=== PATIENT | female | born 1935 | race Caucasian/White ===

== ENCOUNTER 2019-09-13 06:44 | Outpatient (CLI) | payer MEDICARE, SELFPAY ==
--- NOTE | ~2019-09-13 | US_ITS ---
EXAMINATION: US venous doppler [facility] DATE: 09/13/2019 08:34 INDICATION: Calf pain. TECHNIQUE: Grayscale ultrasound images without and with compression and Doppler ultrasound images of the bilateral lower extremity veins were obtained. COMPARISON: Ultrasound 03/14/2019 FINDINGS: The visualized portions of right common femoral vein, profunda (deep) femoral vein, femoral vein, pop liteal vein, peroneal veins, posterior tibial veins, and greater saphenous vein outflow are patent. The visualized portions of left common femoral vein, profunda femoral vein, femoral vein, popliteal v ein, peroneal veins, posterior tibial veins, and greater saphenous vein outflow are patent. IMPRESSION: 1. No deep venous thrombosis. Reviewed, dictated and finalized at location A. MOLD TESTER
--- NOTE | ~2019-09-13 | CT_ITS ---
EXAMINATION: CTA chest PE protocol DATE: 09/13/2019 07:27 INDICATION: Chest pain and shortness of breath. TECHNIQUE: Computed tomography angiography (CTA) of the chest was performed with 100 mL Omnipaque-350 intravenous contrast timed to evaluate the pulmonary arteries. Coronal maximum intensity projection 3D-reconstructions were created by the technologist. Automated exposure control and iterative reconst ruction technique were employed. The dose-length product was 194.69 mGy-cm. COMPARISON: Chest CT 10/27/2017 FINDINGS: There is moderate scarring at the lung apices. There is a stable 4 mm nodule in right lower lobe, likely benign. There is a stable 4 mm nodule in left lower lobe, likely benign. There are engraver flatware yaquelin airspace opacities in lingula with volume loss and varicose bronchiectasis, consistent with scarr ing. No pleural effusion. There are nodules in the thyroid measuring up to 12 mm, likely not clinical ly significant. Cardiomegaly is noted. There are coronary artery calcifications. No pericardial effus ion. There is no pulmonary embolus. There is levoscoliosis of upper thoracic spine. There is mild chr onic height loss of multiple vertebral bodies. There is moderate thoracic spondylosis. IMPRESSION: 1. No pulmonary embolus. 2. Scarring at the lung apices and in the lingula. Reviewed, dictated and finalized at location A. L OPPORTUNITY DIRECTOR
[2019-09-13 07:20] LABS: Blood Urea Nitrogen 29 mg/dL (8-26); Estimated Glomerular Filt Rate 53
== END 2019-09-13 06:45 | disposition home or self-care (01) ==
PROVIDERS: PCP Family Medicine; Visit Provider Nurse Practitioner Family
DX: I82.493 Acute embolism and thrombosis of other specified deep vein of lower extremity, bilateral (principal); R91.8 Other nonspecific abnormal finding of lung field
CPT/HCPCS: 36415; 71275; 93970; G0365; Q9967

== ENCOUNTER → 2020-02-06 08:58 | Outpatient (CLI) | payer MEDICARE, SELFPAY ==
--- NOTE | ~2020-02-06 | MR_ITS ---
EXAMINATION: MR brain/brain stem wo con DATE: 02/06/2020 09:58 INDICATION: Right-sided trigeminal neuralgia. TECHNIQUE: Magnetic resonance imaging (MRI) of the brain and brainstem was performed without intraven ous contrast. Sequences included sagittal and axial T1-weighted FSE, axial diffusion-weighted FS EPI, axial T2*-weighted GRE, axial T2-weighted FLAIR Propeller, axial T2-weighted Propeller, small field- of-view coronal FIESTA, small ofhgu-mi-cwfd coronal T1-weighted FSE, and small gzqbx-je-amhd axial T1 -weighted SPGR. Apparent diffusion coefficient (ADC) maps were created. COMPARISON: Brain MRI 01/31/2018 FINDINGS: There are scattered areas of nonspecific increased T2-weighted signal intensity in the cere bral white matter, which is within normal limits for the patient's age. There is no intracranial hemo rrhage, acute infarction, or abnormal intracranial mass lesion. The ventricles are normal in size. Ri ght superior cerebellar artery exerts mass effect on the right trigeminal nerve at the root entry zon e. The mastoid air cells are normal. There is mild mucosal thickening in the paranasal sinuses. There are likely changes of right ocular lens replacement surgery. IMPRESSION: 1. 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 Reviewed, dictated and finalized at location A.
== END ==
PROVIDERS: PCP Family Medicine; Visit Provider Psychiatry & Neurology Neurology
DX: G50.0 Trigeminal neuralgia (principal)
CPT/HCPCS: 70551

== ENCOUNTER 2020-04-23 11:23 | Emergency (ER) | payer MEDICARE, SELFPAY ==
--- NOTE | ~2020-04-23 | XR_ITS ---
EXAMINATION: XR chest 1V portable EXAM DATE: 04/23/2020 13:06 INDICATION: Fever. TECHNIQUE: Portable AP frontal chest x-ray was obtained. Comparison is made to prior examination from 12/26/2018. FINDINGS: Biapical scarring. The lungs are otherwise clear. There are no pleural effusions. Cardiac silhouette is prominent but magnified on this AP technique. There is no pneumothorax suspected. T he bones and soft tissues are unremarkable. Severe chronic hyperinflation. IMPRESSION: 1. No acute cardiopulmonary findings. 2. Hyperinflation. Reviewed, dictated and finalized at location B.
[2020-04-23 11:29] VITALS: BP 127/54; PULSE 74; RESP 18; TEMP 37; O2SAT 96
[2020-04-23 12:24] LABS: Basophils Percent Auto 0.5 % (0.2-1.2); Eosinophils Absolute Auto 0.1 K/mm3 (0-0.3); Eosinophils Percent Auto 1.1 % (0-4.4); Hematocrit 38.8 % (37.0-47.0); Hemoglobin 12.6 g/dL (12.0-15.0); Immature Granulocyte Absolute 0.03 K/mm3 (0.00-0.031); Immature Granulocyte Percent A 0.5 % (0-0.5); Lymphocytes Absolute Auto 1.21 K/mm3 (0.9-3.2); Lymphocytes Percent Auto 18.9 % (18.3-44.2); Mean Corpuscular HGB Conc 32.5 g/dl (32-36); Mean Corpuscular Hemoglobin 30.5 pg (26-34); Mean Corpuscular Volume 93.9 fl (80-100); Mean Platelet Volume 10.5 fl (7.4-10.4); Monocytes Absolute Auto 0.7 K/mm3 (0.1-0.6); Monocytes Percent Auto 10.2 % (2.6-8.5); Neutrophils Absolute Auto 4.4 K/mm3 (1.3-6.7); Neutrophils Percent Auto 68.8 % (45.5-73.1); Platelet Count Result 216 k/mm3 (150-375); Red Blood Count 4.13 M/mm3 (4.2-5.4); Red Cell Distribution Width 12.2 % (11.5-14.5); White Blood Count 6.4 K/mm3 (4.5-10.0)
--- NOTE | 2020-04-23 12:27 | ED.FEVER ---
HPI - Fever General Chief Complaint: Fever Stated Complaint: fever 101 Time Seen by Provider: 04/23/20 11:49 Source: patient Mode of arrival: ambulatory Limitations: no limitations History of Present Illness HPI Narrative: Patient is a 84-year-old female who presents to emergency department for evaluation of cough congestion rhinorrhea for the last week and a half was referred to emergency department by primary care due to fever patient notes that she feels fine notes slight fatigue denies vomiting diarrhea chest pain notes shortness of breath but states that is consistent with her chronic COPD. Patient on arrival resting comfortably in the room denies vomiting diarrhea chest pain is noted. Patient has been compliant with her prescribed medications has not taken anything for her symptoms. Related Data Home Medications Medication Instructions Recorded Confirmed cholecalciferol (vitamin D3) 25 1,000 unit PO DAILY 09/24/19 03/30/20 mcg (1,000 unit) capsule rivaroxaban 10 mg tablet 10 mg PO DAILY 09/24/19 03/30/20 Allergies Allergy/AdvReac Type Severity Reaction Status Date / Time Sulfa (Sulfonamide Allergy Unknown constipatio Verified 04/23/20 10:27 Antibiotics) n sulfamethizole Allergy Unknown sweaty Verified 04/23/20 10:27 Review of Systems Review of Systems: All systems reviewed & are unremarkable except as noted in HPI and below PMFSH Past Medical History Medical History COPD exacerbation Essential hypertension Status post gamma knife treatment Upper respiratory tract infection Social History Social History Smoking status: Never smoker Alcohol intake: never Gender identity (if verbalized by the patient): Female Spiritual care concerns: No Exam Narrative: Exam Narrative: GENERAL: Well-appearing, well-nourished, and in no acute distress. HEAD: Normocephalic, atraumatic. EYES: PERRLA and EOMI. ENT: Nares clear, no rhinorrhea or epistaxis. Mucous membranes moist. Oropharynx without tonsillar hypertrophy exudate or other lesions. NECK: Supple. No adenopathy or masses. CHEST: Clear to auscultation. No respiratory distress. No wheezes rales or rhonchi HEART: Regular rate and rhythm. No murmur heard. Normal peripheral pulses. ABDOMEN: Soft, nontender, nondistended EXTREMITIES: Normal range of motion. No edema. SKIN: Warm, dry, no rash. NEURO: No focal deficits. Alert and oriented x3. PSYCH: Normal mood and affect. 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 Supervision Patient in the room at this time aware of case findings treatment plan and diagnosis agreeing to follow-up as directed or to return if symptoms worsen or concerns aware of discussion with primary care and will follow with them over the phone for COVID testing and reevaluation Consultations Consultation #1: Discussed case with primary care who will follow patient at home for reevaluation Date: 04/23/20 Time: 13:55 Vital Signs Vital signs: Vital Signs Temperature 98.6 F 04/23/20 11:29 Pulse Rate 74 04/23/20 11:29 Respiratory Rate 18 04/23/20 11:29 Blood Pressure 127/54 L 04/23/20 11:29 Pulse Oximetry 96 04/23/20 11:29 Temperature 98.6 F 04/23/20 11:29 Pulse Rate 59 L 04/23/20 13:30 Respiratory Rate 18 04/23/20 13:30 Blood Pressure 148/64 H 04/23/20 13:30 Pulse Oximetry 100 04/23/20 13:30 MDM - Fever MDM Narrative Medical decision making narrative: Patient in the room in no distress no high risk changes in the blood work imaging hemodynamically stable. Patient with nontender abdominal exam no pneumonia seen on exam. Patient has been hydrated and advised to continue to hydrate will go home pending COVID results and will follow with primary care and is been given strict instructions on returning Lab Data Result diagrams: 04/23/20 12:08 04/23/20 12:08 Labs: Lab Results
[2020-04-23] MEDS: SODIUM CHLORIDE 0.9% IV 500 ML 999 ML IV CONT (12:31)
[2020-04-23 12:33] LABS: INR 1.9; Partial Thromboplastin Time 34.6 SECONDS (22.3-36.8); Prothrombin Time 21.2 Seconds (11.1-14.7)
[2020-04-23 12:36] LABS: Lactic Acid Reflex 0.9 mmol/L (0.7-2.1)
[2020-04-23 12:41] LABS: Alanine Aminotransferase 15 U/L (4-35); Albumin Level 4.1 g/dL (3.5-5.1); Alkaline Phosphatase 82 U/L (38-126); Aspartate Amino Transferase 32 U/L (14-36); Bilirubin,Total 0.5 mg/dL (0.2-1.3); Blood Urea Nitrogen 24 mg/dL (7-17); CRP < 0.5 mg/dL (<1.0); Calcium 9.7 mg/dL (8.4-10.2); Carbon Dioxide 27 mmol/L (22-30); Chloride 104 mmol/L (98-107); Estimated CRCL calculation 38 ml/min; Estimated Glomerular Filt Rate > 60; Glucose 92 mg/dL (65-105); Potassium 4.1 mmol/L (3.4-5.0); Sodium 137 mmol/L (137-145)
[2020-04-23 13:30] VITALS: BP 148/64; PULSE 59; RESP 18; O2SAT 100
[2020-04-23 13:44] LABS: Add Urine Microscopic? YES; Appearance Urine Clear (Clear); Bilirubin Urine Negative (Negative); Blood Urine 2+ (Negative); Color Urine Yellow (Yellow); Glucose Urine UA Negative (Negative); Ketones Urine Negative (Negative); Leukocyte Esterase Ur Negative LEU/UL (Negative); Mucus Urine Rare /lpf; Nitrate Urine Negative (Negative); Protein Urine Negative (Negative); Specific Grav Ur 1.013 (1.001-1.035); Urobilinogen Urine Negative mg/dL (<2.0); WBC Urine 0-3 /hpf
[2020-04-23 14:11] VITALS: BP 142/78; PULSE 78; RESP 18; O2SAT 100
[2020-04-23 22:04] LABS: SARS-CoV-2 RNA PCR Negative
== END 2020-04-23 14:12 | disposition home or self-care (01) ==
PROVIDERS: Emergency Medicine Emergency Medical Services; Emergency Provider Emergency Medicine; PCP Family Medicine
DX: J06.9 Acute upper respiratory infection, unspecified (principal); Z20.828 Contact with and (suspected) exposure to other viral communicable diseases; I10 Essential (primary) hypertension; J44.9 Chronic obstructive pulmonary disease, unspecified; R06.02 Shortness of breath
CPT/HCPCS: 36415; 71045; 80053; 81001; 83605; 85025; 85610; 85730; 86140; 87040; 87635; 96360; 99283; C9803; J7040; U0003

== ENCOUNTER 2020-06-19 14:48 | Outpatient (CLI) | payer MEDICARE, SELFPAY ==
[2020-06-19 15:42] LABS: Parathyroid Intact 25.6 pg/mL (7.5-53.5)
[2020-06-19 17:11] LABS: Free T4 Free Thyroxine 0.99 ng/mL (0.78-2.19)
[2020-06-24 05:33] LABS: Triiodothyronine T3 Free 3.1 pg/mL (2.3-4.2)
== END 2020-06-19 14:49 | disposition home or self-care (01) ==
PROVIDERS: PCP Family Medicine; Visit Provider Internal Medicine Endocrinology, Diabetes & Metabolism
DX: E04.9 Nontoxic goiter, unspecified (principal); E05.90 Thyrotoxicosis, unspecified without thyrotoxic crisis or storm; M81.0 Age-related osteoporosis without current pathological fracture
CPT/HCPCS: 36415; 82306; 83970; 84439; 84443; 84481

== ENCOUNTER 2020-06-22 10:23 | Outpatient (CLI) | payer MEDICARE, SELFPAY ==
--- NOTE | ~2020-06-22 | US_ITS ---
EXAMINATION: US thyroid EXAM DATE: 06/22/2020 10:58 INDICATION: Nontoxic goiter. TECHNIQUE: Multiple grayscale and Doppler images of the thyroid were obtained (by a technologist who performed the scan) and subsequently reviewed. Individual nodules and recommendations may be reporte d in accordance with TI-RADS system as designated by the 2017 ACR White Paper TI-RADS committee. Comp eseson is made to prior examination from 12/26/2018, 04/28/2015. FINDINGS: The right thyroid lobe measures 4.6 x 2.4 x 2.5 cm, the left measuring 3.5 x 1.8 x 2.5 cm. Mildly het erogeneous thyroid echogenicity with hypervascular parenchyma. There are several thyroid nodules. Largest thyroid nodule is in the right thyroid lobe measures 2.2 x 1.7 x 1.8 cm, solid (2 points), is oechoic (1 point), wider than tall, smooth margin, without echogenic foci, category TR3 for this nodu le. There is another nodule with similar imaging characteristics in the right thyroid lobe measuring 1.5 x 1.2 x 1.4 cm. On the left side, largest thyroid nodule measures 1.2 x 1. 1 x 0.8 centimeters, spongiform appearance consistent with colloid cyst. Study appears unchanged compared to prior examination from 2014, nodu les currently present are not likely clinically significant. IMPRESSION: 1. Stable multinodular goiter; return to clinical follow-up. Reviewed, dictated and finalized at location A.
== END 2020-06-22 10:24 | disposition home or self-care (01) ==
PROVIDERS: PCP Family Medicine; Visit Provider Internal Medicine Endocrinology, Diabetes & Metabolism
DX: E04.2 Nontoxic multinodular goiter (principal); E05.90 Thyrotoxicosis, unspecified without thyrotoxic crisis or storm
CPT/HCPCS: 76536

== ENCOUNTER 2020-07-17 09:22 | Outpatient (CLI) | payer MEDICARE, SELFPAY ==
--- NOTE | ~2020-07-17 | MM_ITS ---
EXAMINATION: MM screening kelli BI w tom HISTORY: Screening mammogram TECHNIQUE: Craniocaudal and mediolateral oblique 3-D tomosynthesis images were obtained and synthetic 2-D images were generated. CAD analysis was submitted and interpreted. COMPARISON: 07/15/2019, 07/10/2018, 04/18/2017 bilateral digital screening mammogram examinations BREAST PARENCHYMAL COMPOSITION: There are scattered areas of fibroglandular density. FINDINGS: There are occasional benign calcifications. Focal architectural distortion is suggested in the inner aspect of the mid to upper outer left breast (craniocaudal Tomosynthesis image 18/45). Diagnostic left mammogram and left breast ultrasound exami nation are recommended. Otherwise there is no evidence of suspicious mass, calcification, or architectural distortion to sugg est malignancy in either breast. There has been no other suspicious interval change. IMPRESSION: 1. Focal architectural distortion in inner aspect of mid to upper outer left breast 2. Diagnostic left mammogram and left breast ultrasound examination are recommended. BI-RADS Category 0: Incomplete: Needs additional imaging evaluation. Reviewed, dictated and finalized at location A. IMPRESSION: 1. Focal architectural distortion in inner aspect of mid to upper outer left br east 2. Diagnostic left mammogram and left breast ultrasound examination are recomme nded. BI-RADS Category 0: Incomplete: Needs additional imaging evaluation.
== END 2020-07-17 09:23 | disposition home or self-care (01) ==
LOC: ANHIMG 09:25
PROVIDERS: PCP Family Medicine; Visit Provider Family Medicine
DX: Z12.31 Encounter for screening mammogram for malignant neoplasm of breast (principal); R92.8 Other abnormal and inconclusive findings on diagnostic imaging of breast
CPT/HCPCS: 77063; 77067

== ENCOUNTER 2020-08-10 11:09 | Outpatient (CLI) | payer MEDICARE, SELFPAY ==
--- NOTE | ~2020-08-10 | MMUS_ITS ---
EXAMINATION: MM diagnostic mammo unilat LT, US breast LT complete HISTORY: Follow-up left breast asymmetry TECHNIQUE: Additional 3-D tomosynthesis images of the left breast were performed and synthetic 2-D im ages were generated. CAD analysis was submitted and interpreted. High resolution left breast ultrasou nd was performed. COMPARISON: Comparison to multiple prior studies sequentially, with oldest reviewed study dated 06/2015. BREAST PARENCHYMAL COMPOSITION: Breast composed of scattered areas of fibroglandular density. FINDINGS: MAMMOGRAPHIC FINDINGS: There are no suspicious masses, calcifications or architectural distortion in the left breast to sugg est malignancy. Focal asymmetries in the left breast are stable with spot compression views. ULTRASOUND: Complete left breast ultrasound. Normal heterogeneous echotexture without focal solid or cystic mass. IMPRESSION: 1. No evidence for malignancy in the left breast. 2. Routine yearly screening mammogram and regular clinical breast examination are recommended. BI-RADS Category 2: Benign finding(s). Reviewed, dictated and finalized at location A. IMPRESSION: 1. No evidence for malignancy in the left breast. 2. Routine yearly screening mammogram and regular clinical breast examination a re recommended. BI-RADS Category 2: Benign finding(s).
== END 2020-08-10 11:10 | disposition home or self-care (01) ==
LOC: ANHIMG 11:09
PROVIDERS: PCP Family Medicine; Visit Provider Family Medicine
DX: R92.8 Other abnormal and inconclusive findings on diagnostic imaging of breast (principal)
CPT/HCPCS: 76641; 77065

== ENCOUNTER 2021-01-20 09:42 | Outpatient (CLI) | payer MEDICARE, SELFPAY ==
--- NOTE | ~2021-01-20 | DEXA_ITS ---
Bone Density Report Name: Beth Tracey Age: 85 Sex: Female Ethnicity: White Date of : 1935 Indication: osteopenia; parental hip fracture; height loss; postmenopausal Referring Provider: Yuliya Hogan Study: Bone densitometry was performed. Exam Date: January 20, 2021 Accession number: [id number] Bone Density: Region BMD T-score Z-score Classification AP Spine (L1-L4) 0.975 -0.7 2.2 Normal Femoral Neck (Left) 0.582 -2.4 0.1 Osteopenia Total Hip (Left) 0.757 -1.5 0.8 Osteopenia Total Hip Bilateral Avg 0.716 -1.9 0.5 Osteopenia Femoral Neck (Right) 0.547 -2.7 -0.2 Osteoporosis Total Hip (Right) 0.674 -2.2 0.1 Osteopenia World Health Organization criteria for BMD impression classify patients as: Normal (T-score at or above -1.0), Osteopenia (T-score between -1.0 and -2.5), or Osteoporosis (T-score at or below -2.5). 10-year Fracture Risk: FRAX not reported because: Some T-score for Spine Total or Hip Total or Femoral Neck at or below -2.5 Previous Exams: Region Exam Age BMD T-score BMD Change BMD Change Date g/cm2 vs Baseline vs Previous AP Spine(L1-L4) 01/20/2021 85 0.975 -0.7 0.052(5.6%)# 0.040(4.3%)* 12/22/2018 82 0.934 -1.0 0.012(1.3%)# 0.004(0.4%)# 08/28/2012 76 0.931 -1.1 0.008(0.8%)# -0.026(-2.7%)# 04/29/2009 73 0.956 -0.8 0.033(3.6%)* 0.006(0.6%) 12/20/2003 67 0.950 -0.9 0.028(3.0%)* 0.028(3.0%)* 09/28/2001 65 0.923 -1.1 Total Hip(Left) 01/20/2021 85 0.757 -1.5 0.041(5.8%)# 0.024(3.2%) 12/22/2018 82 0.733 -1.7 0.017(2.4%)# -0.020(-2.7%)# 08/28/2012 76 0.753 -1.5 0.038(5.2%)# 0.015(2.0%)# 04/29/2009 73 0.738 -1.7 0.023(3.2%) 0.027(3.7%) 12/20/2003 67 0.712 -1.9 -0.004(-0.5%) -0.004(-0.5%) 09/28/2001 65 0.716 -1.9 Total Hip(Right) 01/20/2021 85 0.674 -2.2 0.017(2.6%)# 0.004(0.5%) 12/22/2018 82 0.671 -2.2 0.013(2.1%)# -0.017(-2.5%)# 08/28/2012 76 0.688 -2.1 0.031(4.7%)# 0.012(1.7%)# 04/29/2009 73 0.676 -2.2 0.019(2.9%) 0.012(1.8%) 12/20/2003 67 0.664 -2.3 0.007(1.0%) 0.007(1.0%) 09/28/2001 65 0.657 -2.3 *Denotes significance at 95% confidence level, LSC for AP Spine = 0.022 g/cm2, LSC for Total Hip = 0.027 g/cm2 Clinical Information Provided by Patient: Parent has had a hip fracture Patient maximum height was 64 Menopause Age: 50 Onset of menses at age 14 Number of children 0
== END 2021-01-20 09:43 | disposition home or self-care (01) ==
PROVIDERS: PCP Family Medicine; Visit Provider Internal Medicine Endocrinology, Diabetes & Metabolism
DX: E03.9 Hypothyroidism, unspecified (principal); E04.2 Nontoxic multinodular goiter; M81.0 Age-related osteoporosis without current pathological fracture; M85.852 Other specified disorders of bone density and structure, left thigh; M85.851 Other specified disorders of bone density and structure, right thigh
CPT/HCPCS: 77080

== ENCOUNTER 2021-01-21 12:06 | Outpatient (CLI) | payer MEDICARE, SELFPAY ==
[2021-01-21 12:53] LABS: Anion Gap 6 mmol/L (8-16); Blood Urea Nitrogen 25 mg/dL (7-17); Calcium 9.4 mg/dL (8.4-10.2); Carbon Dioxide 30 mmol/L (22-30); Chloride 105 mmol/L (98-107); Estimated Glomerular Filt Rate 53; Glucose 106 mg/dL (65-105); Potassium 4.2 mmol/L (3.4-5.0); Sodium 141 mmol/L (137-145)
[2021-01-21 13:10] LABS: Free T4 Free Thyroxine 1.07 ng/mL (0.78-2.19); Vitamin D 25 Hydroxy 47.9 ng/mL
[2021-01-21 13:25] LABS: Thyroid Stimulating Hormone 0.839 uIU/mL (0.465-4.680); Total Triiodothyronine (T3) 1.33 NG/ML (0.97-1.69)
== END 2021-01-21 12:07 | disposition home or self-care (01) ==
PROVIDERS: PCP Family Medicine; Visit Provider Internal Medicine Endocrinology, Diabetes & Metabolism
DX: M81.0 Age-related osteoporosis without current pathological fracture (principal); E03.9 Hypothyroidism, unspecified; E04.2 Nontoxic multinodular goiter; E05.90 Thyrotoxicosis, unspecified without thyrotoxic crisis or storm
CPT/HCPCS: 36415; 80048; 82306; 84439; 84443; 84480

== ENCOUNTER 2021-03-09 07:01 | Emergency (ER) | payer MEDICARE, SELFPAY ==
[2021-03-09 07:05] VITALS: BP 179/82; PULSE 64; RESP 20; TEMP 36.6; O2SAT 100
--- NOTE | 2021-03-09 07:16 | PC.NURSE ---
x2 weeks scaly itchy red rash to front of neck and chest w/spot on legs, denies use of new skin products, reports sulfa allergy. States she went to 's adz worker appt [place] to have them look at it, has been using hydrocortisone and triamcinolone w/o relief. Non-labored respirations
[2021-03-09 07:44] LABS: Basophils Absolute Auto 0.1 K/mm3 (0.0-0.1); Basophils Percent Auto 0.8 % (0.2-1.2); Eosinophils Absolute Auto 0.3 K/mm3 (0-0.3); Eosinophils Percent Auto 4.3 % (0-4.4); Hemoglobin 12.4 g/dL (12.0-15.0); Immature Granulocyte Absolute 0.02 K/mm3 (0.00-0.031); Immature Granulocyte Percent A 0.3 % (0-0.5); Lymphocytes Absolute Auto 1.44 K/mm3 (0.9-3.2); Lymphocytes Percent Auto 22.2 % (18.3-44.2); Mean Corpuscular HGB Conc 32.6 g/dl (32-36); Mean Corpuscular Hemoglobin 30.8 pg (26-34); Mean Corpuscular Volume 94.5 fl (80-100); Mean Platelet Volume 9.8 fl (7.4-10.4); Monocytes Absolute Auto 0.7 K/mm3 (0.1-0.6); Monocytes Percent Auto 10.8 % (2.6-8.5); Neutrophils Percent Auto 61.6 % (45.5-73.1); Platelet Count Result 208 k/mm3 (150-375); Red Blood Count 4.02 M/mm3 (4.2-5.4); White Blood Count 6.5 K/mm3 (4.5-10.0)
[2021-03-09 07:54] LABS: Anion Gap 5 mmol/L (8-16); Blood Urea Nitrogen 24 mg/dL (7-17); Calcium 9.6 mg/dL (8.4-10.2); Carbon Dioxide 29 mmol/L (22-30); Chloride 107 mmol/L (98-107); Estimated CRCL calculation 30 ml/min; Estimated Glomerular Filt Rate 53; Glucose 94 mg/dL (65-105); Sodium 141 mmol/L (137-145)
--- NOTE | 2021-03-09 09:01 | ED.SKABFB ---
HPI - Skin/Abscess/Foreign Bdy General Chief complaint: Skin/Abscess/Foreign Body Stated complaint: rash Time Seen by Provider: 03/09/21 07:10 History of Present Illness HPI narrative: Patient is an 85-year-old female who presents ER with a rash. Is located on her anterior neck and upper chest. She also has 1 small lesion to her left inner thigh near her knee. It is pruritic. No fevers or chills or sweats. There are no pustules or vesicles or drainage. She was seen by a rolloff truck driver and has been using triamcinolone cream for the last week as well as topical hydrocortisone cream. She reports is not improving her symptoms. No known exposures to new medications or detergents. She uses dye free and fragrance free laundry detergent. She has not applied anything else to the rash. She is unsure when she is supposed to follow-up with her rolloff truck driver. Related Data Home Medications Medication Instructions Recorded Confirmed cholecalciferol (vitamin D3) 25 1,000 unit PO DAILY 09/24/19 09/29/20 mcg (1,000 unit) capsule rivaroxaban 10 mg tablet 10 mg PO DAILY 09/24/19 09/29/20 Allergies Allergy/AdvReac Type Severity Reaction Status Date / Time Sulfa (Sulfonamide Allergy Unknown constipatio Verified 09/29/20 09:40 Antibiotics) n sulfamethizole Allergy Unknown sweaty Verified 09/29/20 09:40 Review of Systems Review of Systems: All systems reviewed & are unremarkable except as noted in HPI and below Constitutional: Constitutional: Denies chills, Denies fever(s) and Denies weakness ENT: Denies dysphagia and Denies sore throat Cardiovascular: Cardiovascular: Denies chest pain and Denies radiating jaw, neck or arm pain Respiratory: Respiratory: Denies cough and Denies dyspnea Integumentary/Breasts: Skin/Breast: Reports pruritus, Reports erythema, Reports rash and Denies skin ulcer PMFSH Past Medical History Medical History (Updated 03/09/21 @ 09:08 by Catalino Mejia MD) COPD exacerbation Essential hypertension History of DVT (deep vein thrombosis) Hyperthyroidism Multinodular goiter Status post gamma knife treatment Trigeminal neuralgia of right side of face Upper respiratory tract infection Family History Family History Father Family history of cardiovascular disease Family history of chronic obstructive pulmonary disease Family history of tuberculosis Family history of coronary artery disease Mother Family history of cardiovascular disease, Onset Age: 97 Grandparent Family history of kidney disease Other Asthma Family history of hearing loss Family history of lung disease Social History Social History Smoking status: Never smoker Alcohol intake: never Gender identity (if verbalized by the patient): Female Spiritual care concerns: No Exam Narrative: Exam Narrative: GENERAL: Well-appearing, well-nourished, and in no acute distress. HEAD: Normocephalic, atraumatic. ENT: Mucous membranes moist. NECK: Supple. CHEST: Clear to auscultation. No respiratory distress. HEART: Regular rate and rhythm. Normal peripheral pulses. EXTREMITIES: Normal range of motion. No edema. SKIN: Warm, dry, no rash. See neck exam NEURO: Alert and oriented x3. Neck: Neck: no lymphadenopathy, supple and no anterior neck swelling Neck images: 1. Urticarial wheel 2. Slight erythema with indurated wheels. Course Course Emergency Course: Unremarkable blood work. Will encourage Benadryl as well as oral steroids. This does not appear to be cellulitis my opinion. Patient may require biopsy if not responsive to steroids. Discussed this with patient recommend follow-up with PCP or dermatology. Vital Signs Vital signs: Vital Signs Temperature 97.9 F 03/09/21 07:05 Pulse Rate 64 03/09/21 07:05 Respiratory Rate 20 03/09/21 07:05 Blood Pressure 179/82 H
[2021-03-09 09:21] VITALS: BP 144/84; PULSE 65; RESP 18; O2SAT 98
== END 2021-03-09 09:23 | disposition home or self-care (01) ==
PROVIDERS: Emergency Provider Emergency Medicine; PCP Family Medicine
DX: L50.9 Urticaria, unspecified (principal); J44.9 Chronic obstructive pulmonary disease, unspecified; I10 Essential (primary) hypertension; E04.2 Nontoxic multinodular goiter; Z86.718 Personal history of other venous thrombosis and embolism
CPT/HCPCS: 36415; 80048; 85025; 99283

== ENCOUNTER 2021-09-29 09:23 | Outpatient (CLI) | payer MEDICARE, SELFPAY ==
--- NOTE | 2021-09-29 09:41 | ECG_ITS ---
Measurements Intervals [place] Rate: 64 P: 75 PA: 114 QRS: 58 QRSD: 72 T: 50 QT: 378 QTc: 392 Interpretive Statements SINUS RHYTHM WITH SINUS ARRHYTHMIA WITH SHORT PA INTERVAL CANNOT RULE OUT SEPTAL INFARCT, AGE INDETERMINATE BASELINE ARTIFACT- I, AVR, AVL ABNORMAL ECG Electronically Signed On 09-29-2021 11:18:50 EXTERIOR DESIGNER by Jewel Leung D.O.
== END 2021-09-29 09:24 | disposition home or self-care (01) ==
PROVIDERS: PCP Family Medicine; Visit Provider Surgery
DX: K40.90 Unilateral inguinal hernia, without obstruction or gangrene, not specified as recurrent (principal); I10 Essential (primary) hypertension; Z01.818 Encounter for other preprocedural examination; R94.31 Abnormal electrocardiogram [ECG] [EKG]
CPT/HCPCS: 36415; 86850; 86900; 86901; 93005

== ENCOUNTER 2022-01-04 14:14 | Outpatient (CLI) | payer MEDICARE, SELFPAY ==
[2022-01-04 17:02] LABS: Anion Gap 5 mmol/L (8-16); Blood Urea Nitrogen 24 mg/dL (7-17); Calcium 9.1 mg/dL (8.4-10.2); Carbon Dioxide 31 mmol/L (22-30); Chloride 104 mmol/L (98-107); Estimated Glomerular Filt Rate 53; Glucose 94 mg/dL (65-110); Potassium 3.9 mmol/L (3.4-5.0); Sodium 140 mmol/L (137-145)
[2022-01-04 17:15] LABS: Free T4 Free Thyroxine 1.16 ng/mL (0.78-2.19); Vitamin D 25 Hydroxy 43.6 ng/mL
[2022-01-04 17:32] LABS: Thyroid Stimulating Hormone 0.701 uIU/mL (0.465-4.680)
[2022-01-07 16:35] LABS: Triiodothyronine T3 Free 3.2 pg/mL (2.3-4.2)
== END 2022-01-04 14:15 | disposition home or self-care (01) ==
LOC: ANHWCLAB 14:18
PROVIDERS: PCP Family Medicine; Referring Provider Internal Medicine Endocrinology, Diabetes & Metabolism; Visit Provider Internal Medicine Endocrinology, Diabetes & Metabolism
DX: E04.1 Nontoxic single thyroid nodule (principal); E05.90 Thyrotoxicosis, unspecified without thyrotoxic crisis or storm; M81.0 Age-related osteoporosis without current pathological fracture; R79.89 Other specified abnormal findings of blood chemistry
CPT/HCPCS: 36415; 80048; 82306; 84439; 84443; 84481

== ENCOUNTER 2022-03-16 03:20 | Emergency (ER) | payer MEDICARE, SELFPAY ==
[2022-03-16 03:32] VITALS: BP 180/67; PULSE 61; RESP 18; TEMP 36.9; O2SAT 99
--- NOTE | 2022-03-16 07:51 | ED.GENADULT ---
HPI - General Adult General Chief complaint: Skin/Abscess/Foreign Body Stated complaint: rash, itching Time Seen by Provider: 03/16/22 07:37 Source: patient and family Limitations: no limitations History of Present Illness HPI narrative: Patient is 86 years old white female came to the emergency room with itching rash started was seen by her family physician recently and was diagnosed of shingles and was started on triamcinolone cream and acyclovir without any improvement. She denies any fever, chills, nausea, vomiting or having similar symptoms in the past. Related Data Home Medications Medication Instructions Recorded Confirmed rivaroxaban 10 mg tablet 10 mg PO DAILY 09/24/19 01/04/22 azelastine 1 spray INTRANASAL Q12H PRN 09/22/21 01/04/22 Allergies Allergy/AdvReac Type Severity Reaction Status Date / Time Sulfa (Sulfonamide Allergy Unknown constipatio Verified 03/16/22 05:58 Antibiotics) n sulfamethizole Allergy Unknown sweaty Verified 03/16/22 05:58 Review of Systems Review of Systems: All systems reviewed & are unremarkable except as noted in HPI and below PMFSH Past Medical History Medical History Acute deep vein thrombosis (DVT) of popliteal vein of right lower extremity COPD exacerbation Detrusor dysfunction Essential hypertension History of DVT (deep vein thrombosis) Hyperthyroidism Multinodular goiter Status post gamma knife treatment Trigeminal neuralgia of right side of face Upper respiratory tract infection Family History Family History Father Family history of cardiovascular disease Family history of chronic obstructive pulmonary disease Family history of tuberculosis Family history of coronary artery disease Mother Family history of cardiovascular disease, Onset Age: 97 Grandparent Family history of kidney disease Other Asthma Family history of hearing loss Family history of lung disease Social History Social History Smoking status: Never smoker Second hand tobacco smoke exposure: No Alcohol intake: never Substance use: never Substance use type: does not use Gender identity (if verbalized by the patient): Female Spiritual care concerns: No Exam Narrative: General appearance: Well-developed, well-nourished Skin:, Macular rash left lower abdomen left upper thigh anteriorly, and at the right thigh anteriorly also eczematous rash on the right side of face. Head: Normocephalic, nontraumatic Eyes: Clear conjunctiva ENT: Oropharynx normal, ears normal, nose normal Neck: Supple, nontender Chest and respiratory: Airway patent, no respiratory distress, no accessory muscle use Heart: Regular rate/rhythm Abdomen: Soft, nontender, no organomegaly, quiet bowel sounds Vascular: Normal peripheral pulses, normal capillary refill. Musculoskeletal: Normal range of motion, nontender back Neurologic: Alert and oriented ?3, FOUNDRY TENDER is normal as tested, no gross motor deficit Course Consultations Consultation #1: Dr. York Agreed to discharge on prednisone and Zyrtec Date: 03/16/22 Time: 08:44 Vital Signs Vital signs: Vital Signs Temperature 36.9 C 03/16/22 03:32 Pulse Rate 61 03/16/22 03:32 Respiratory Rate 18 03/16/22 03:32 Blood Pressure 180/67 H 03/16/22 03:32 Pulse Oximetry 99 03/16/22 03:32 Temperature 36.9 C 03/16/22 03:32 Pulse Rate 61 03/16/22 03:32 Respiratory Rate 18 03/16/22 03:32 Blood Pressure 180/67 H 03/16/22 03:32 Pulse Oximetry 99 03/16/22 03:32 Medical Decis
[2022-03-16] MEDS: predniSONE 20 MG TABLET 40 MG PO (08:32)
[2022-03-16 08:35] VITALS: BP 155/72; PULSE 68; RESP 20; O2SAT 98
== END 2022-03-16 08:49 | disposition home or self-care (01) ==
PROVIDERS: Emergency Provider Emergency Medicine; PCP Family Medicine
DX: R21 Rash and other nonspecific skin eruption (principal); J44.9 Chronic obstructive pulmonary disease, unspecified; I10 Essential (primary) hypertension; Z86.718 Personal history of other venous thrombosis and embolism
CPT/HCPCS: 99283; J7512

== ENCOUNTER 2022-12-03 11:37 | Emergency (ER) | payer MEDICARE, SELFPAY ==
[2022-12-03 11:55] VITALS: BP 124/56; RESP 18; TEMP 36.6; O2SAT 99
[2022-12-03 12:02] VITALS: PULSE 78
--- NOTE | 2022-12-03 12:23 | ED.EXTPRO ---
HPI - Extremity Problem General Chief complaint: Extremity Problem,Nontraumatic Stated complaint: Right Foot Pain Time Seen by Provider: 12/03/22 12:23 Source: patient Mode of arrival: ambulatory Limitations: no limitations History of Present Illness HPI Narrative: 86-year-old female presenting for complaint of redness and swelling to the right great toe over the last 4 days. He reports it is tender to touch. She denies injury. Denies numbness, tingling, weakness of the foot. She has not taken anything for symptoms. Related Data Home Medications Medication Instructions Recorded Confirmed rivaroxaban 10 mg tablet (Xarelto) 10 mg PO DAILY 09/24/19 12/03/22 metoprolol succinate 25 mg 25 mg PO DAILY 09/21/22 12/03/22 tablet,extended release 24 hr Allergies Allergy/AdvReac Type Severity Reaction Status Date / Time Sulfa (Sulfonamide Allergy Unknown constipatio Verified 12/03/22 11:47 Antibiotics) n sulfamethizole Allergy Unknown sweaty Verified 12/03/22 11:47 Review of Systems Review of Systems: CONSTITUTIONAL: Denies body aches, fever, chills, or sweats. EYES: Denies visual changes, redness, or discharge. ENT: Denies rhinorrhea, congestion CARDIOVASCULAR: Denies chest pain, palpitations, or edema. RESPIRATORY: Denies cough or dyspnea. GASTROINTESTINAL: Denies abdominal pain, nausea, vomiting, or diarrhea. SKIN: per HPI MUSCULOSKELETAL: Denies back pain, joint pain, or myalgia. NEUROLOGIC: Denies headache, numbness, tingling, or weakness. [facility] Past Medical History Medical History Acute deep vein thrombosis (DVT) of popliteal vein of right lower extremity COPD exacerbation Detrusor dysfunction Essential hypertension History of DVT (deep vein thrombosis) Hyperthyroidism Multinodular goiter Status post gamma knife treatment Trigeminal neuralgia of right side of face Upper respiratory tract infection Surgical History Surgical History History of appendectomy Age 10 Family History Family History Father Family history of cardiovascular disease Family history of chronic obstructive pulmonary disease Family history of tuberculosis Family history of coronary artery disease Mother Family history of cardiovascular disease, Onset Age: 97 Grandparent Family history of kidney disease Other Asthma Family history of hearing loss Family history of lung disease Social History Social History Smoking status: Never smoker Second hand tobacco smoke exposure: No Alcohol intake: never Substance use: never Substance use type: does not use Living arrangements: with family Gender identity (if verbalized by the patient): Female Spiritual care concerns: No Comments At time of signature, I have reviewed and agree with nursing past medical, surgical, social and family history unless otherwise noted. Please see nursing chart for further information. There is no relevant family history pertinent to the presenting complaint Exam Narrative: GENERAL: Well-appearing ENT: Mucous membranes moist. Oropharynx without edema, erythema or lesions. NECK: Supple. No lymphadenopathy CHEST: Clear to auscultation. HEART: Regular rate and rhythm. SKIN: Warm, dry. Right great toe lateral aspect with area of fluctuance at center and surroundig erythema to mid toe, c/w abscess and surrounding cellulitis. Tender to palpation. Toe with moderate swelling, no active drainage. Large corn to 2nd toe rubbing at the site of fluctuance. Cap refill <3 seconds. NEURO: Alert and oriented x3. Course Course Emergency Course: Patient is aware of diagnosis, understands and agrees to treatment plan. Anticipatory guidance given. Patient agrees to follow-up as dire
== END 2022-12-03 13:05 | disposition home or self-care (01) ==
PROVIDERS: Emergency Provider Nurse Practitioner Family; PCP Family Medicine Adolescent Medicine
DX: L03.031 Cellulitis of right toe (principal); L02.611 Cutaneous abscess of right foot; J44.9 Chronic obstructive pulmonary disease, unspecified; I10 Essential (primary) hypertension; E05.90 Thyrotoxicosis, unspecified without thyrotoxic crisis or storm; Z86.718 Personal history of other venous thrombosis and embolism; E04.2 Nontoxic multinodular goiter
CPT/HCPCS: 10060; 87070; 87075; 87205; 99213; G0463

== ENCOUNTER 2022-12-27 09:48 | Outpatient (CLI) | payer OTHER, SELFPAY ==
[2022-12-27 13:30] LABS: Anion Gap 5 mmol/L (8-16); Blood Urea Nitrogen 29 mg/dL (7-17); Calcium 9.3 mg/dL (8.4-10.2); Carbon Dioxide 30 mmol/L (22-30); Chloride 105 mmol/L (98-107); Estimated Glomerular Filt Rate 59; Glucose 63 mg/dL (65-110); Sodium 140 mmol/L (137-145)
[2022-12-27 13:46] LABS: Free T4 Free Thyroxine 1.16 ng/mL (0.78-2.19); Vitamin D 25 Hydroxy 43.5 ng/mL
[2022-12-27 14:02] LABS: Thyroid Stimulating Hormone 0.673 uIU/mL (0.465-4.680)
[2022-12-30 04:36] LABS: Triiodothyronine T3 Free 3.1 pg/mL (2.3-4.2)
== END 2022-12-27 09:49 | disposition home or self-care (01) ==
LOC: ANHWCLAB 09:49
PROVIDERS: PCP Family Medicine Adolescent Medicine; Visit Provider Internal Medicine Endocrinology, Diabetes & Metabolism
DX: E05.90 Thyrotoxicosis, unspecified without thyrotoxic crisis or storm (principal); M81.0 Age-related osteoporosis without current pathological fracture; E04.1 Nontoxic single thyroid nodule
CPT/HCPCS: 36415; 80048; 82306; 84439; 84443; 84481

== ENCOUNTER 2023-05-13 20:28 | Emergency (ER) | payer MEDICARE, SELFPAY ==
--- NOTE | ~2023-05-13 | CT_ITS ---
EXAMINATION: CT abdomen pelvis w con DATE: 05/14/2023 00:13 INDICATION: Right upper quadrant abdominal pain TECHNIQUE: Computed tomography (CT) of the abdomen and pelvis was performed with 99 CC Omnipaque 350 intravenous contrast. Automated exposure control and iterative reconstruction technique were employed . Exam dose: 305.80 mGy-cm total exam DLP. COMPARISON: None. FINDINGS: The lung bases are clear of infiltrate or consolidation. No pericardial or pleural effusion . No hepatic, splenic, pancreatic, and adrenal space-occupying mass lesion. Approximately 2 mm nonobstr ucting right renal calculus. Anterior mid left renal 7 mm, posterior mid left renal 7 mm and 3.5 and 4 mm upper pole probable left renal cysts. There is moderately prominent distention of the left renal collecting structures and le ft renal pelvis on the left renal pelvis measuring up to 2 cm AP dimension. No obstructing calculus i s evident. Left ureteropelvic disproportion is suggested. No right hydronephrosis. No ureteral calculus is noted on either side. The urinary bladder is unremar kable. Status post hysterectomy. Normal caliber and mild atherosclerotic calcification of the abdominal aorta. No intraperitoneal or r etroperitoneal or pelvic mass lesion or adenopathy or ascites. There are numerous diverticula of the colon; no CT evidence of diverticulitis. No bowel obstruction o r intraperitoneal free air. Fat and fluid are noted within a moderate size right inguinal hernia which measures up to approximate ly 3.7 cm AP, 3.6 cm transverse and 5 cm vertical dimension. Multilevel degenerative disease of the lumbar spine. There is prominent degenerative change at the ap ophyseal joints of the lower lumbar and lumbosacral area with associated minimal grade 1 anterolisthe sis at L4-5. No suspicious osteolytic or osteoblastic lesions are noted. IMPRESSION: Bilateral renal probable cysts Probable left ureteropelvic disproportion with moderate left pelviectasis of hydronephrosis Probable left renal cysts Diverticulosis of the colon; no evidence of diverticulitis Abdomen fluid containing moderate right inguinal hernia Reviewed, dictated and finalized at [facility]. Reviewed, dictated and finalized at [facility]. IMPRESSION: Bilateral renal probable cysts Probable left ureteropelvic disproportion with moderate left pelviectasis of hy dronephrosis Probable left renal cysts Diverticulosis of the colon; no evidence of diverticulitis Abdomen fluid containing moderate right inguinal hernia
--- NOTE | ~2023-05-13 | CT_ITS ---
EXAMINATION: CT brain wo con DATE: 05/14/2023 00:13 INDICATION: Headache TECHNIQUE: Computed tomography (CT) of the head was performed without intravenous contrast. The mA wa s adjusted according to patient size. Iterative reconstruction technique was employed. Exam dose: 60 5.33 mGy-cm total exam DLP. COMPARISON: February 06, 2020 MRI brain/brainstem February 06, 2018 CT brain FINDINGS: There is age-consistent with moderately prominent cerebral and cerebellar volume loss. Bila teral carotid siphon internal carotid artery calcifications. Nonspecific diminished attenuation of th e cerebral white matter, likely due to chronic small vessel ischemic changes. No intracranial mass lesion or hemorrhage, midline shift or mass effect. No cerebrovascular accident is evident. No subdural or epidural hematoma is detected. The mastoid air cells and paranasal sinuses are unremarkable. No fracture or bone destruction of the cranial vault. IMPRESSION: Cerebral atherosclerosis and chronic small vessel ischemic changes of cerebral white mat ter Age-consistent cerebral and cerebellar volume loss Reviewed, dictated and finalized at [facility]. Reviewed, dictated and finalized at [facility]. IMPRESSION: Cerebral atherosclerosis and chronic small vessel ischemic changes of cerebral white matter Age-consistent cerebral and cerebellar volume loss
[2023-05-13 20:50] VITALS: BP 157/65; PULSE 79; RESP 16; TEMP 36.8; O2SAT 100
[2023-05-13 21:42] LABS: Basophils Percent Auto 0.1 % (0.2-1.2); Hematocrit 37.3 % (37.0-47.0); Hemoglobin 12.1 g/dL (12.0-15.0); Immature Granulocyte Absolute 0.01 K/mm3 (0.00-0.031); Immature Granulocyte Percent A 0.1 % (0-0.5); Lymphocytes Absolute Auto 0.99 K/mm3 (0.9-3.2); Lymphocytes Percent Auto 11.3 % (18.3-44.2); Mean Corpuscular HGB Conc 32.4 g/dl (32-36); Mean Corpuscular Volume 95.6 fl (80-100); Mean Platelet Volume 9.6 fl (7.4-10.4); Monocytes Absolute Auto 0.9 K/mm3 (0.1-0.6); Neutrophils Absolute Auto 6.9 K/mm3 (1.3-6.7); Neutrophils Percent Auto 78.5 % (45.5-73.1); Platelet Count Result 189 k/mm3 (150-375); Red Cell Distribution Width 12.3 % (11.5-14.5); White Blood Count 8.8 K/mm3 (4.5-10.0)
[2023-05-13 21:47] LABS: Appearance Urine Clear (Clear); Bacteria Urine None Seen /hpf; Bilirubin Urine Negative (Negative); Blood Urine 2+ (Negative); Color Urine Yellow (Yellow); Glucose Urine UA Negative (Negative); Ketones Urine Negative (Negative); Leukocyte Esterase Ur Negative LEU/UL (Negative); Nitrate Urine Negative (Negative); Non Pathogenic Casts 0-2; Protein Urine Trace mg/dL (Negative); RBC Urine 21-50 /hpf (0-2); Specific Grav Ur 1.009 (1.001-1.035); Squamous Epithelial Cell Urine None seen /hpf (Few); Urobilinogen Urine 0.2 mg/dL (<2.0); WBC Urine 0-5 /hpf; pH Urine 6.5 (5.0-9.0)
[2023-05-13 21:52] LABS: Add Urine Microscopic? YES; Alanine Aminotransferase 19 U/L (6-35); Albumin Level 4.3 g/dL (3.5-5.1); Alkaline Phosphatase 68 U/L (38-126); Anion Gap 8 mmol/L (8-16); Aspartate Amino Transferase 30 U/L (14-36); Bilirubin,Total 0.5 mg/dL (0.2-1.3); Blood Urea Nitrogen 35 mg/dL (7-17); Calcium 9.2 mg/dL (8.4-10.2); Carbon Dioxide 27 mmol/L (22-30); Chloride 103 mmol/L (98-107); Estimated CRCL calculation 25 ml/min; Estimated Glomerular Filt Rate 52; Glucose 120 mg/dL (65-110); Lipase 255 U/L (23-300); Potassium 3.9 mmol/L (3.4-5.0); Sodium 138 mmol/L (137-145)
[2023-05-13 22:55] VITALS: BP 122/84; PULSE 62; RESP 15; O2SAT 97
--- NOTE | 2023-05-13 23:22 | ED.ABDPAIN ---
HPI - Abdominal Pain General Chief Complaint: Abdominal Pain Stated Complaint: abdominal pain/SHARMA Time Seen by Provider: 05/13/23 23:01 Source: patient and family Mode of arrival: ambulatory Limitations: other (Poor historian) History of Present Illness HPI narrative: This is an 87-year-old female that presents to the emergency department for abdominal pain. Her family member reports she was complaining of right upper quadrant abdominal pain and nausea. They were concerned about her gallbladder so brought her in for evaluation. Patient also reports a right-sided headache. Her family reports the headache has been ongoing for months. She has history of trigeminal neuralgia for which she has had gamma knife surgery. She is currently on a steroid and has follow-up with her primary provider next week for this. She also has follow-up with her neurosurgeon next month. Denies fever, visual changes, vomiting, diarrhea, dysuria, or focal numbness or weakness. Related Data Home Medications Medication Instructions Recorded Confirmed rivaroxaban 10 mg tablet (Xarelto) 10 mg PO DAILY 09/24/19 04/05/23 albuterol sulfate 90 mcg/actuation 2 inh inhalation Q4-6H PRN 12/27/22 04/05/23 aerosol inhaler (ProAir HFA) shortness of breath or wheezing Allergies Allergy/AdvReac Type Severity Reaction Status Date / Time Sulfa (Sulfonamide Allergy Unknown constipatio Verified 04/05/23 13:39 Antibiotics) n sulfamethizole Allergy Unknown sweaty Verified 04/05/23 13:39 Review of Systems Review of Systems: CONSTITUTIONAL: Denies fever EYES: Denies visual changes GASTROINTESTINAL: Reports abdominal pain, nausea. Denies vomiting, or diarrhea. GENITOURINARY: Denies dysuria SKIN: Denies rash NEUROLOGIC: Reports headache. Denies numbness, or weakness. All systems reviewed & are unremarkable except as noted in HPI and below PMFSH Past Medical History Medical History Acute deep vein thrombosis (DVT) of popliteal vein of right lower extremity COPD exacerbation Detrusor dysfunction Essential hypertension History of DVT (deep vein thrombosis) Hyperthyroidism Multinodular goiter Status post gamma knife treatment Trigeminal neuralgia of right side of face Upper respiratory tract infection Surgical History Surgical History History of appendectomy Age 10 Family History Family History Father Family history of cardiovascular disease Family history of chronic obstructive pulmonary disease Family history of tuberculosis Family history of coronary artery disease Mother Family history of cardiovascular disease, Onset Age: 97 Grandparent Family history of kidney disease Other Asthma Family history of hearing loss Family history of lung disease Social History Social History Smoking status: Never smoker Second hand tobacco smoke exposure: No Alcohol intake: never Substance use: never Substance use type: does not use Lack of Transportation: No Lack of Food: Never True Current Housing: I Have Housing Concerned About Future Housing: No Difficulty Paying Gas/Electric Bills: No Difficulty Paying for Meds: No Currently Unemployed: No Education: High School Diploma/GED Difficulty w/ Childcare or Family Care: No Living arrangements: with family Gender identity (if verbalized by the patient): Female Spiritual care concerns: No Exam Narrative: GENERAL: Elderly, well-nourished, and in no acute distress. HEAD: Normocephalic, atraumatic. EYES: PERRLA and EOMI. ENT: Nares clear, no rhinorrhea or epistaxis. Mucous membranes moist. Oropharynx without tonsillar hypertrophy exudate or other lesions. Bilateral TMs pearly overton non-bulging NECK: Supple. No tanya
[2023-05-14 00:09] VITALS: BP 142/76; PULSE 88; RESP 15; O2SAT 99
[2023-05-14 02:14] VITALS: BP 146/80; PULSE 68; RESP 15; O2SAT 98
== END 2023-05-14 02:15 | disposition home or self-care (01) ==
PROVIDERS: Emergency Medicine; Emergency Provider Physician Assistant; PCP Family Medicine Adolescent Medicine
DX: R10.11 Right upper quadrant pain (principal); R51.9 Headache, unspecified; I10 Essential (primary) hypertension; Z86.718 Personal history of other venous thrombosis and embolism
CPT/HCPCS: 36415; 70450; 74177; 80053; 81001; 83690; 85025; 99284; Q9967

== ENCOUNTER 2024-05-24 15:35 | Outpatient (CLI) | payer MEDICARE, SELFPAY ==
--- NOTE | ~2024-05-24 | US_ITS ---
EXAMINATION: US thyroid DATE: 05/24/2024 15:53 INDICATION: Thyroid nodule. TECHNIQUE: Multiple ultrasound images of the thyroid were obtained. COMPARISON: Ultrasound 06/22/2020, 12/26/2018 FINDINGS: The right thyroid lobe measures 4.1 x 2.3 x 3.1 cm. The left thyroid lobe measures 3.5 x 1.7 x 2.5 c m. In the right thyroid lobe, there is a 2.0 cm mixed cystic and solid, isoechoic, wider than tall n odule with ill-defined margin without echogenic foci (TI-RADS TR2). In the left thyroid lobe, there i s an 11 mm solid, isoechoic, wider than tall nodule with ill-defined margin and punctate echogenic fo ci (TR4). In the left thyroid lobe, there is a 13 mm predominantly solid, hypoechoic, wider than tall nodule with ill-defined margin without echogenic foci (TR4). In the left thyroid lobe, there is an 1 1 mm mixed cystic and solid, isoechoic, wider than tall nodule with ill-defined margin without echoge yaquelin foci (TR2). The thyroid demonstrates increased vascularity. IMPRESSION: 1. Multinodular goiter, stable from 12/26/2018, likely benign. Reviewed, dictated and finalized at [facility].
== END 2024-05-24 15:36 ==
LOC: GOSHIMG 15:36
PROVIDERS: PCP Family Medicine Adolescent Medicine; Visit Provider Family Medicine Adolescent Medicine
DX: E04.2 Nontoxic multinodular goiter (principal)
CPT/HCPCS: 76536

== ENCOUNTER 2025-01-03 09:50 | Emergency (ER) | payer MEDICARE, SELFPAY ==
--- NOTE | ~2025-01-03 | XR_ITS ---
EXAMINATION: XR hip LT min 2V DATE: 01/03/2025 11:37 INDICATION: Left hip pain. TECHNIQUE: 2 views of left hip were obtained. COMPARISON: None. 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 No fracture. No pe riprosthetic lucency to suggest loosening or infection. There is mild left hip osteoarthritis. IMPRESSION: 1. 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 2. Mild left hip osteoarthritis. Reviewed, dictated and finalized at location A. 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
[2025-01-03 09:51] VITALS: BP 145/58; PULSE 67; RESP 16; TEMP 36.6
--- OUTSIDE RECORDS SUMMARY | 2025-01-03 10:28 | XMS_ITS | Referral Summary ---
Author Organization [facility] [place], [place] [address] Address [address] [place] [address] Care Team Providers Care Finish Grinder Name Role Phone Elias Irizarry MD Primary Care Prov ider Miscellaneous, Not In File Unavailable Unava ilable Allergies Active Allergy Reactions Criticality Noted Date Comments Carbamazepine Other (See comments) Low 02/27/2020 Reacts with Xarelto Sulfa (Sulfonamide Antibiotics) Stomach upset Low 04/23/2018 Medications gabapentin (NEURONTIN) 100 mg capsule TAKE 2 CAPSULES(200 MG) BY MOUTH THREE TIMES DAILY 180 capsule 1 3 Active acetaminophen 500 mg capsule Take 2 capsules (1,000 mg total) by mouth every 6 (six) hours 4 Active acetaminophen (TYLENOL) 325 mg tabletIndicatio ns:Pain Take 2 tablets (650 mg total) by mouth every 6 (six) hours as needed for pain 30 tablet 4 Active metoprolol tartrate (LOPRESSOR) 25 mg immediate release tablet Take 0.5 tablets (12.5 mg total) by mouth 2 (two) times a day 30 tablet 4 Active polyethylene glycol (MIRALAX) 17 gram/dose bulk powderIndicatio ns:constipation Take 17 g by mouth daily 238 g 4 Active QUEtiapine (SEROquel) 50 mg tablet Take 1 tablet (50 mg total) by mouth nightly 30 tablet 4 Active tobramycin-dexA METHasone (TOBRADEX) ophthalmic ointment Apply 1 Application to both eyes 3 (three) times a day 3.5 g 4 Active meclizine (ANTIVERT) 25 mg tablet TAKE 1 TABLET BY MOUTH THREE TIMES DAILY NEEDED FOR DIZZINESS 4 Active Eliquis 2.5 mg tablet TAKE 1 TABLET BY MOUTH TWICE DAILY THEN STOP 60 tablet 4 Active Active Problems Problem Noted Date Diagnosed Date Pressure injury of coccygeal region, stage 1 12/2023 Assessment & Plan (01/31/2024 8:30 AM CDT): Encourage position change every 2 hours or more frequent as pt is able or with assistance Allevyn barrier protection change every 3 days or sooner if soiled. Encourage PO intake At risk for malnutrition 01/19/2024 Assessment & Plan (01/30/2024 1:30 PM CDT): 01/18 patient failed MBS yesterday. Plan for NG tube placement to initiate tube feeds until reevaluation, likely Monday. Family at bedside and agreeable with this plan; Nutrition consulted 01/20 tolerating TFs 01/21 NG self dc'd, NG will get replaced. MBS tomorrow 01/22 inderjit passed MBS now on regular food and liquids 01/29 tolerating meals, able to feed self, need encouragement for PO hydration. Goals of care, counseling/discussion 01/19/2024 Overview (01/19/2024): Assessment & Plan (01/30/2024 1:37 PM CDT): 01/18 Discussion with Suzie, daughter of patient (SANDRA), regarding need for nutrition. It was agreed that an NG tube would be placed and would provide a temporary means for nutrition and medication administration. All questions were answered. Will re-evaluate patient ability to swallow tentatively on Monday. 01/21 Suzie called updated on MBS tomorrow, she is aware. She is aware the NG was self terminated by pt and NG going back in. She and her brother are not at this time interested in PEG at this time. Suzie reports pt lived at home with her second that has dementia. Suzie did groceries; otherwise the patient did her own ADLs, medicals and chores. 01/29 continue full code at this time Discharge planning issues 01/17/2024 Assessment & Plan (02/05/2024 12:02 PM CDT): 01/16 therapy recommending SNF, family looking for termite treater placement; patient not swallowing safely, choking/coughing on water, failed FEES, plan for MBS tomorrow; daughter presented POA and 5 wishes paperwork 01/[address] 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 Discharge pending insurance authorization 01/29 Patient is medically stable for discharge, SW/CM updated. Discharge pending insurance authorization 02/04 Patient is medically stable for discharge, SW/CM updated. Discharge pending facility acceptance NO xarelto on discharge Suzie Mary (Daughter) [phone] Delirium 01/16/2024 Assessment & Plan (01/30/2024 1:34 PM CDT): 01/15 agitation and delirium worsening today, did not sleep, started Seroquel 01/16 remains agitated and did not sleep more than 1 hour; continue Seroquel nightly and PRN Zyprexa 01/23 no agitation issues overnight, continue current regimen Seroquel nightly and Haldol prn 01/29 no nightly issues reported per RN notes. Avoid waking at night for meds time for waking hours. Continue nightly Seroquel. Skin tear of left forearm without complication 0 01/15/2024 Assessment & Plan (01/15/2024 7:50 AM CDT): 01/14 Allevyn dressing applied Frequent falls 01/15/2024 Assessment & Plan (01/29/2024 3:41 PM CDT): Patient admitted 01/12 after unwitnessed fall patient fell again 01/14. Bed alarm in use imaging obtained no new fractures and repaired left hip images unchanged. Assist to ambulate with walker Dysphagia 01/15/2024 Assessment & Plan (01/30/2024 1:36 PM CDT): 01/14 attempted to take pills and food and noted to have coughing and difficulty swallowing. 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 01/29 continue PO meals and liquids without issues. Resolved. Thyroid nodule incidentally noted on imaging alexei dy 01/14/2024 Assessment & Plan (08/06/2024 2:46 PM CDT): - noted on CT at presentation; CT read: large right inferior thyroid nodule extending both inferiorly and posteriorly - outpatient thyroid US - PCP aware and will follow up thyroid nodule Hyperthyroidism 01/14/2024 Assessment & Plan (01/17/2024 11:00 AM CDT): - home methimazole, metoprolol Per pharmacy and PCP Eun, patient does not take Closed fracture of neck of left femur 01/13/2024 Assessment & Plan (01/30/2024 1:32 PM CDT): #Left femoral neck fx 01/12: present to ED after [facility]. 01/13: OR ([facility]) for left pipo-hip arthroplasty (L HHR) 01/14: fall from bed, crepitus noted anterior left pelvis, repeat imaging no acute fracture or hardware failure. 01/16: orthopedics signed off Follow up: Orthopedic surgery, weight-bearing as tolerated with global hip precautions for 6 weeks, will return in approximately six weeks for a wound check, and will not need xrays until the six week follow up visit. Closed fracture of neck of left femur, initial e ncounter 01/13/2024 VICTOR MANUEL on CPAP 07/14/2020 Assessment & Plan (01/30/2024 1:38 PM CDT): Continue CPAP 01/29 Per Resp therapy notes pt consistently refuse nightly CPAP Trigeminal neuralgia 03/19/2020 Assessment & Plan (01/19/2024 11:58 AM CDT): - home gabapentin continued Chronic anticoagulation 07/12/2019 History of DVT (deep vein thrombosis) 12/03/2018 Assessment & Plan (01/24/2024 11:32 AM CDT): #prior DVT - 06/01/2018: Doppler on her right leg which did show DVT in her soleus, popliteal and peroneal veins - >1 year ago - on Xarelto 10 mg (last 01/12 in AM) 01/[address] Haynes for on going need and risk/benefit of use will NOT continue at time of discharge Atypical chest pain 04/23/2018 Chronic obstructive pulmonary disease 04/23/2018 Assessment & Plan (01/30/2024 1:30 PM CDT): Stable - no home medications -monitor for need bronchodilators or corticosteroid Elevated troponin 04/23/2018 Other fatigue 04/23/2018 Right leg swelling 04/23/2018 Pulmonary hypertension 04/23/2018 Assessment & Plan (01/17/2024 11:01 AM CDT): #COPD #pHTN -January 2018: EF 65-70%. Diastolic dysfunction is present. Mild pulmonary hypertension with RVSP 40. Mild TR. - spoke with pharmacy, family and PCP, patient does not use any medications Resolved Problems Problem Noted Date Diagnosed Date Resolved Date Hypokalemia 01/18/2024 01/30/2024 Assessment & Plan (01/27/2024 12:01 PM CDT): 01/17 potassium 2.9, EKG A-flutter repeat BMP potassium 3.7, sodium 147; given 500mL bolus for low urine output (frequency) and elevated sodium, patient currently NPO with no IV fluids -01/23 3.3 replete K and Mg -01/26: BMP/Phos/Mg are WNL. No need for further labs Encounter for medication review 01/15/2024 02/05/2024 Assessment & Plan (01/24/2024 11:30 AM CDT): 01/14 reviewed patient medication list with daughter Suzie; patient currently taking Gabapentin (Dr Iniguez), Tobradex (eye care center), Xarelto (Dr Haynes) It is recommended the Xarelto be stopped secondary to recent and frequent falls [id number] [place], [place] - [address] [place] [address] RD AT [facility] [address] P: [phone] Immunizations Immunization Administration Dates Next Due Influenza, Trivalent, Adjuva nted, Intramuscular 07/24/2018,07/23/2018 Influenza, Trivalent, High D ose, Split, Preservative Free, Intramuscular 07/22/2019,08/07/2017,08/02/2016,08/05 Influenza, Trivalent, IM (MDV) 09/05/2014 Pneumococcal Conjugate PCV 13 08/15/2018 Social History Tobacco Use Types Packs/Day Years Used Date Smoking Tobacco: Never Smokeless Tobacco: Never Tobacco Cessation:Counseling Given: No Alcohol Use Standard Drinks/Week Comments No 0 (1 standard drink = 0.6 oz pur e alcohol) [facility] Utilities Answer Date Recorded In the past 12 months has [employer], gas, oil, or water [employer] threatened to shut off services in your home? Patient unable to answer 01/19/2024 Humiliation, Afraid, Rape, a nd Kick questionnaire Answer Date Recorded Within the last year, have y ou been afraid of your partner or ex-partner? Patient unable to answer 01/19/2024 Within the last year, have y ou been humiliated or emotionally abused in other ways by your partner or ex-partner? Patient unable to answer 01/19/2024 Within the last year, have y ou been kicked, hit, slapped, or otherwise physically hurt by your partner or ex-partner? Patient unable to answer 01/19/2024 Within the last year, have y ou been raped or forced to have any kind of sexual activity by your partner or ex-partner? Patient unable to answer 01/19/2024 Social Connection and Isolation Panel [NHANES] A nswer Date Recorded In a typical week, how many times do you talk on the phone with family, friends, or neighbors? Patient unable to answer 01/19/2024 How often do you get togethe r with friends or relatives? Patient unable to answer 01/19/2024 How often do you attend chur ch or baptism services? Patient unable to answer 01/19/2024 Do you belong to any clubs o r organizations such as yarsanism groups, unions, fraternal or athletic groups, or school groups? Patient unable to answer 01/19/2024 How often do you attend meet ings of the clubs or organizations you belong to? Patient unable to answer 01/19/2024 Are you , , di vorced, , never , or living with a partner? Patient unable to answer 01/19/2024 AUDIT-C Answer Date Recorded Q1: How often do you have a drink containing alcohol? Patient unable to answer 01/19/2024 Q2: How many drinks containi ng alcohol do you have on a typical day when you are drinking? Patient unable to answer Q3: How often do you have si x or more drinks on one occasion? Patient unable to answer 01/19/2024 Overall Financial Resource Strain (CARDIA) Answe r Date Recorded How hard is it for you to pa y for the very basics like food, housing, medical care, and heating? Patient unable to answer 01/19/2024 [facility]at [facility] - Occupational Stress Questionnaire Answer Date Recorded Do you feel stress - tense, restless, nervous, or anxious, or unable to sleep at night because your mind is troubled all the time - these days? Patient unable to answer 01/19/2024 Exercise Vital Sign Answer Date Recorde d On average, how many days pe r week do you engage in moderate to strenuous exercise (like a brisk walk)? Patient unable to answer 01/19/2024 On average, how many minutes do you engage in exercise at this level? Patient unable to answer 01/19/2024 Hunger Vital Sign Answer Date Recorded Within the past 12 months, y ou worried that your food would run out before you got the money to buy more. Patient unable to answer 01/19/2024 Within the past 12 months, t he food you bought just didn't last and you didn't have money to get more. Patient unable to answer 01/19/2024 PRAPARE - Transportation Answer Date Re corded In the past 12 months, has l ack of transportation kept you from medical appointments or from getting medications? Patient unable to answer 01/19/2024 In the past 12 months, has l ack of transportation kept you from meetings, work, or from getting things needed for daily living? Patient unable to answer 01/19/2024 Housing Stability Vital Sign Answer Cong e Recorded In the last 12 months, was t here a time when you were not able to pay the mortgage or rent on time? Patient unable to answer 01/19/2024 Number of Places Lived in the Last Year Not on f ile 01/19/2024 In the last 12 months, was t here a time when you did not have a steady place to sleep or slept in a usp (including now)? Patient unable to answer 01/19/2024 Personal Safety Answer Date Recorded Have you ever been in or are you currently in a harmful physical or emotional relationship or is someone making you feel afraid or unsafe? 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 Gender Identity Not on file Sexual Orientation Not on file Last Filed Vital Signs Vital Sign Reading Time Taken Comments Blood Pressure 137/60 02/06/2024 10:50 AM CDT Pulse 73 02/06/2024 10:50 AM CDT Temperature 36.3 C (97.3 F) 02/06/2024 7:40 AM CDT Respiratory Rate 16 02/06/2024 7:40 AM CDT Oxygen Saturation 99% 02/06/2024 7:40 AM CDT Inhaled Oxygen Concentration - - Weight 45 kg (99 lb 3.3 oz) 02/02/2024 12:35 AM CDT Height 160 cm (5' 3 ) 01/13/2024 11:15 PM CDT Body Mass Index 17.57 01/13/2024 11:15 PM CDT Plan of Treatment Not on file Medical Devices Implanted Type Area Microchip Specialist Device Identifier Shelf Expiration Date Model / Serial / Lot [employer] Simplex P Radiopaque Full Dose Cement Bone Sterile 6191-1-010 - [id number] Implanted:Qty: 1 on 01/14/2024 by Randall Thomas MD at [facility] Left: Hip [employer] [id number] 02/26/2026 6191-1-010 / / [id number] [employer] Simplex P Radiopaque Full Dose Cement Bone Sterile 6191-1-010 - [id number] Implanted:Qty: 1 on 01/14/2024 by Randall Thomas MD at [facility] Left: Hip [employer] [id number] 02/26/2026 6191-1-010 / / [id number] [employer]/Or tho Prep-Im Plug Bryan Sponge Suction Hip Kit Thr Latex Free [id number] - [id number] Implanted:Qty: 1 on 01/14/2024 by Randall Thomas MD at [facility] Left: Hip [employer]/O rtho 09/04/2033 [id number] / / [id number] [employer] Cementralizer 9.25mm Cemented Hip Femur Centralizer Stem Pmma Latex Free [id number] - [id number] Implanted:Qty: 1 on 01/14/2024 by Randall Thomas MD at [facility] Left: Hip [employer] 05/29/2028 [id number] / / [id number] [employer] Self-Centering 45mm 28mm Hip Femur Head Bipolar Sterile Mckinley [id number] - [id number] Implanted:Qty: 1 on 01/14/2024 by Randall Thomas MD at [facility] Left: Hip [employer] 04/28/2028 [id number] / / [id number] [employer] Newberry 114mm Cemented Hip 4 10/12 Standard Offset Taper Stem [id number] - [id number] Implanted:Qty: 1 on 01/14/2024 by Randall Thomas MD at [facility] Left: Hip [employer] 11/29/2028 [id number] / / [id number] [employer] Articul/John Paul 28mm Hip +5mm 12/14 Taper Head Femoral Cocr Sterile Latex Free [id number] - [id number] Implanted:Qty: 1 on 01/14/2024 by Randall Thomas MD at [facility] Left: Hip [employer] 08/29/2028 [id number] / / [id number] Insurance MEDICARE SOLUTIONS [facility] MEDICARE [facility] MEDICARE Address: [address] [place] [address] [facility] MEDICARE [facility] Address: [facility] [id number] [place] [id number] Advance Directives For more information, please contact: [phone] Documents on File Type Date Recorded Patient Adjunct Faculty Instructor Expl anation Power of Adventure Challenge Instructor 02/03/2022 10:32 AM * Full Code (Latest Code Status on File) Date Activated Date Inactivated Comments 01/13/2024 7:18 PM 02/06/2024 7:56 PM Care Teams Finish Grinder Relationship Specialty Start Date End Date Elias Irizarry MD [address] [place] [address] PCP - General Family Medicine 01/15/24 Miscellaneous, Not In File 02/06/24
--- OUTSIDE RECORDS SUMMARY | 2025-01-03 10:28 | XMS_ITS ---
Author Organization [facility] Care Team Providers Care Sanitation Manager Name Role Phone Vernon Mora Unavailable Unavailable Allergies and adverse reactions Code CodeSystem Substance Reaction Severity StartDate Concern Status 981197853 SNOMED CT Sulfa Antibiotics Moderate active 2001 RXNORM carBAMazepine Moderate 02/07/2024 active Care Team Name Role Address Phone Organization Dates Vernon [place] [address] [place], [address], [place] (Office): : [facility] 02/06/2024 - 02/17/2024 Immunizations Immunization Status Vaccine Details Vaccine Code CodeSystem Date Notes Prevnar 13 completed pneumococcal conjugate vaccine, 13 valent 133 CVX created date: 02/07/2024 administer ed date: 08/15/2018 Measles/Mumps/Ru varun (MMR) normal measles, mumps and rubella virus vaccine 03 CVX created date: 02/13/2024 consent date: 02/13/2024 before 1956 Prevnar 20 completed Pneumococcal conjugate vaccine 20-valent (PCV20), polysaccharide [id number] conjugate, adjuvant, preservative free Given 0.5 ml Left Deltoid intramuscularly 216 CVX created date: 02/09/2024 consent date: 02/09/2024 administer ed date: 02/09/2024 Influenza, seasonal, injectable normal Influenza, split virus, trivalent, injectable, contains preservative 141 CVX created date: 02/07/2024 consent date: 02/07/2024 Mental Status Section Date Assessment Total Score Description 02/16/2024 BIMS 05 severe cognitiv e impairment CAM 0 No delirium ind icated 02/13/2024 BIMS 05 severe cognitiv e impairment CAM 0 No delirium ind icated Problems Problem # Description Date of onset Resolved Date Code CodeSystem Concern Status 1 CHRONIC DIASTOLIC (CONGESTIVE) HEART FAILURE 02/06/[address] active 2 CHRONIC OBSTRUCTIVE PULMONARY DISEASE, UNSPECIFIED 02/06/[address] active 3 DEMENTIA IN OTHER DISEASES CLASSIFIED ELSEWHERE, UNSPECIFIED SEVERITY, WITH AGITATION 02/06/[address] active 4 DISORIENTATION, UNSPECIFIED 02/06/[address] active 5 DYSPHAGIA, UNSPECIFIED 02/06/[address] active 6 ENCOUNTER FOR OTHER ORTHOPEDIC AFTERCARE 02/06/[address] active 7 FRACTURE OF UNSPECIFIED PART OF NECK OF LEFT FEMUR, SUBSEQUENT ENCOUNTER FOR CLOSED FRACTURE WITH ROUTINE HEALING 02/06/[address] active 8 NONTOXIC SINGLE THYROID NODULE 02/06/[address] active 9 OBSTRUCTIVE SLEEP APNEA (ADULT) (PEDIATRIC) 02/06/[address] active 10 PERSONAL HISTORY OF OTHER VENOUS THROMBOSIS AND EMBOLISM 02/06/[address] active 11 PULMONARY HYPERTENSION, UNSPECIFIED 02/06/[address] active 12 THYROTOXICOSIS, 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 THYROTOXIC CRISIS OR STORM 02/06/[address] active 13 TRIGEMINAL NEURALGIA 02/06/[address] active 14 UNSPECIFIED PROTEIN-CALORIE MALNUTRITION 02/06/[address] active Reason for Referral No Reasons for Referral Entered Social History Social History Observation Description Start Date End Date Code Code System Current Smoking Status Tobacco smoking consumption unknown 098815454 SNOMED CT Sex Assigned At Female 1935 50195-4 [facility] Vital Signs Code Code System Vitals Name Values and Units Timing Information 8462-4 [facility] Blood Pressure-Diastolic Value=77 Un its=mmHg 02/16/2024 8480-6 [facility] Blood Pressure-Systolic Ygsdq=362 Un its=mmHg 02/16/2024 9279-1 [facility] Respiratory Rate Value=20.0 Units=/m in 02/16/2024 8310-5 [facility] Body Temperature Value=97.4 Units= F 02/16/2024 8867-4 [facility] Heart rate Value=80.0 Units=/min 05981-6 [facility] O2 % BldC Oximetry Value=98.0 Units= % 02/16/2024 88204-8 [facility] Weight Value=97.9 Units=Lbs 01/28 48510-8 [facility] Pain Level Value=0.0 02/07/2024 8302-2 [facility] Height Value=63.0 Units=Inches 02/07/2024
--- OUTSIDE RECORDS SUMMARY | 2025-01-03 10:28 | XMS_ITS | Continuity of Care Document ---
Author Organization [facility] Address [address] [place] [address] [place] [address] Phone Care Team Providers Care Tank Insulator Rubber Name Role Phone Mahad Art Unavailable Unavailable Procedures Procedure Date Post-op Follow-up Visit Ophthalmoscopy, Subsequent Post-op Follow-up Visit Ophthalmoscopy, Subsequent Eye Exam & Treatment Ophthalmoscopy, Subsequent Optic Nerve Topography Optic Nerve Topography Office/outpatient Visit, Est Eye Exam & Treatment Refraction Office/outpatient Visit, New Advance Directives Directive Yes / No Effective Date File Name No Information Encounters Encounter Description Practice Location Reason(s) For Visit Diagnoses Date Provider Providers Copied on Encounter [facility], [id number] [place] [address] [address], [place], [place], [id number], [place] tel:[phone] SEC [facility] No Information 0 Kaelyn Tobin. [address] [place], [address], [place]. tel:[phone] Referring Provider: Mahad Madrigal, [address] [place], [address]. tel:[phone] [facility], [address] [place] [address] [address], [place], [place], [id number], [place] tel:[phone] [facility] [place] No Information 0 Kaelyn Tobin. [address] [place], [place], [facility], . tel:[phone] [facility], [address] [place] [address] [address], [place], [place], [id number], tel:[phone] [facility] No Information May-2 4-201 0 Kaelyn Tobin. [address] [place] [address], [facility], [place]. tel:[phone] Referring Provider: Mahad Madrigal, [address] [place], [place], [facility]. tel:[phone] Office/outpat ient Visit, [facility], [address] [place] [address] [address], [place], [place], [id number], tel:[phone] [facility] No Information May-0 5-201 0 Krishnasamy Anibal. [address], [facility], [place]. tel:[phone] [facility], [address] [place] [address] [address], [place], [place], [id number], tel:[phone] [facility] No Information Dec-2 3-200 9 Krishnasamy Anibal. 2421 [facility] [address], [place], [facility], [place]. tel:[phone] Office/outpat ient Visit, [facility], [address] [place] [address] [address], [place], [place], [id number], tel:[phone] SEC [facility] No Information Nov-0 5-200 8 Krishnasamy Anibal. 2421 [facility] [address], [place], [facility], [place]. tel:[phone] Family History Family Member Type Diagnosis Age At Onset No Information Payers Payer name Insurance type Covered constitution party ID Authordona tinikki(s) [place] [id number] Social History Type Description Quantity Date Captured Comments Sex Female Smoking Status No Information Chief Complaint And Reason For Visit No Information Reason For Referral Reason For Referral No Information History Of Present Illness Encounter Date Complaint History Of Prese nt Illness No Information Functional Status Date Functional Assessmen t No Information Instructions Date Instruction Additional Infor mation No Information Assessments Type Assessment Date No Information Patient Care Teams Name Effective Dates (start - stop) Status Members No Information
--- OUTSIDE RECORDS SUMMARY | 2025-01-03 10:28 | XMS_ITS | Clinical Summary ---
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 Discharge pending insurance authorization 01/29 Patient is medically stable for discharge, SW/CM updated. Discharge pending insurance authorization 02/04 Patient is medically stable for discharge, SW/CM updated. Discharge pending facility acceptance NO xarelto on discharge Suzie Mary (Daughter) [phone] Delirium 01/16/2024 Assessment & Plan (01/30/2024 1:34 [...] and meds administration 01/20 tolerated TFs, pending INSERT MOLDING OPERATOR re-eval tomorrow 01/23 passed MBS, full [...] (last 01/12 in AM) 01/14 [address] Tin Recovery Worker Dr Haynes for on going need and [...] stopped secondary to recent and frequent falls [id number] [place], [place] - [address] [place] [address] RD AT [facility] 159 P: [phone] Immunizations Immunization Administration Dates Next Due Influenza, Trivalent, Adjuva nted, Intramuscular 07/24/2018,07/23/2018 Influenza, Trivalent, High D ose, Split, Preservative Free, Intramuscular 07/22/2019,08/07/2017,08/02/2016,08/05 Influenza, Trivalent, IM (MDV) 09/05/2014 Pneumococcal Conjugate PCV 13 08/15/2018 Surgical History Surgery Date Site/Laterality Comments APPENDECTOMY Medical History Medical History Date Comments Thyroid disease Acid indigestion COPD (chronic obstructive pulmonary disease) (HC C) Osteoarthritis Hypertension Trigeminal neuralgia Tuberculosis contact Father had tuberculosis Hypokalemia 01/18/2024 Encounter for medication review 01/15/2024 Family History Medical History Relation Name Comments Cancer Brother 1 Diabetes Brother 1 Prostate cancer Brother 1 Cancer Brother 2 Skin cancer Brother 2 Alcohol abuse Father Heart attack Father Heart disease Father Tuberculosis Father Heart disease Sister Rheumatic fever Sister Relation Name Status Comments Brother 1 Brother 2 Father (Age 78) Mother (Age 97) Sister Social History Tobacco Use Types Packs/Day Years Used Date Smoking Tobacco: Never Smokeless Tobacco: Never Tobacco Cessation:Counseling Given: No Alcohol Use Standard Drinks/Week Comments No 0 (1 standard drink = 0.6 oz pur e alcohol) [facility] Utilities Answer Date Recorded In the past 12 months has e electric, gas, oil, or water [employer] threatened to shut off services in your [...] answer 01/19/2024 How often do you attend [facility] or adventist services? Patient unable to answer 01/19/2024 Do you belong to any clubs o r organizations such as orthodoxy groups, unions, fraternal or athletic groups, or [...] and heating? Patient unable to answer 01/19/2024 [facility]ational Stress Questionnaire Answer Date Recorded [...] place to sleep or slept in a long term (including now)? Patient unable to answer 01/19/2024 Personal Safety Answer Date Recorded Have you ever been in or are you currently in a harmful physical or emotional relationship or is someone making you feel afraid or unsafe? 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 Gender Identity Not on file Sexual Orientation Not on file Obstetrics History Last Filed Vital Signs Vital Sign Reading [...] 01/13/2024 11:15 PM CDT Plan of Treatment Health Maintenance Due Date Last Done Comments Depression Screening 1935 DTaP/Tdap/Td Vaccine (1 - Tdap) 12/30/1946 Hepatitis B Screening 12/30/1953 Zoster Vaccine (1 of 2) 12/30/1985 Well Visit 65+ 12/30/2000 Pneumococcal vaccine 65+ (2 of 2 - PPSV23) 10/10/2018 08/15/2018 Influenza Vaccine (#1) 2024 9, 07/24/2018, 07/23/2018, Additional history exists Fall Risk Assessment 02/05/2025 02/06/2024 Medical Devices Implanted Type Area Development Trainer Device Identifier Shelf Expiration Date Model / Serial / Lot [employer] Simplex P Radiopaque Full Dose Cement Bone Sterile 6191-1-010 - [id number] Implanted:Qty: 1 on 01/14/2024 by Randall Thomas MD at [facility] Left: Hip [employer] [id number] 02/26/2026 6191-1-010 / / [id number] [employer] Simplex P Radiopaque Full Dose Cement Bone Sterile 6191-1-010 - [id number] Implanted:Qty: 1 on 01/14/2024 by Randall Thomas MD at [facility] Left: Hip [employer] [id number] 02/26/2026 6191-1-010 / / [id number] [employer]/Or tho Prep-Im Plug [place] Sponge Suction Hip Kit Thr Latex Free [id number] - [id number] Implanted:Qty: 1 on 01/14/2024 by Randall Thomas MD at [facility] Left: Hip [employer]/O rtho 09/04/2033 [id number] / / [id number] [employer] Cementralizer 9.25mm Cemented Hip Femur Centralizer Stem Pmma Latex Free [id number] - [id number] Implanted:Qty: 1 on 01/14/2024 by Randall Thomas MD at [facility] Left: Hip [employer] 05/29/2028 [id number] / / [id number] [employer] Self-Centering 45mm 28mm Hip Femur Head Bipolar Sterile Mckinley [id number] - [id number] Implanted:Qty: 1 on 01/14/2024 by Randall Thomas MD at [facility] Left: Hip [employer] 04/28/2028 [id number] / / [id number] [employer] Hickman 114mm Cemented Hip 4 12/14 Standard Offset Taper Stem [id number] - [id number] Implanted:Qty: 1 on 01/14/2024 by Randall Thomas MD at [facility] Left: Hip [employer] 11/29/2028 [id number] / / [id number] [employer] Articul/John Paul 28mm Hip +5mm 12/14 Taper Head Femoral Cocr Sterile Latex Free [id number] - [id number] Implanted:Qty: 1 on 01/14/2024 by Randall Thomas MD at [facility] Left: Hip [employer] 08/29/2028 [id number] / / [id number] [place] [address] MEDICARE [facility] Address: [address] [address] [place] [address] T MEDICARE T MEDICARE Advance Directives For more information, please contact: [phone] Documents on File Type Date Recorded Patient 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
--- NOTE | 2025-01-03 12:31 | ED.LOWEXIN ---
HPI - Extremity Injury (Lower) General Chief Complaint: Extremity Injury, Lower Stated Complaint: left hip pain, chronic pain Time Seen by Provider: 01/03/25 12:03 History of Present Illness HPI Narrative: Is an 89-year-old female who presents ER with left-sided hip pain. Had a hip replacement 1 year ago has had some mild discomfort. Worse over last 3 days. No trauma or fall. Patient has no rash or bruising. It hurts on the posterior aspect of the left hip. Have tried Tylenol without improvement. History obtained from daughter as patient has dementia. Related Data Home Medications ?Medication ?Instructions ?Recorded ?Confirmed ?Last Taken ?Type apixaban 2.5 mg tablet (Eliquis) 2.5 mg PO BID 05/13/24 08/30/24 Unknown History Allergies Allergy/AdvReac Type Severity Reaction Status Date / Time Sulfa (Sulfonamide Allergy Unknown constipatio Verified 01/03/25 12:11 Antibiotics) n sulfamethizole Allergy Unknown sweaty Verified 01/03/25 12:11 Review of Systems Review of Systems: ROS unobtainable: Yes unobtainable due to mental status [facility] Past Medical History Medical History (Updated 01/03/25 @ 12:36 by Catalino Mejia MD) Shingles rash Detrusor dysfunction Acute deep vein thrombosis (DVT) of popliteal vein of right lower extremity Status post gamma knife treatment History of DVT (deep vein thrombosis) Hyperthyroidism Multinodular goiter Trigeminal neuralgia of right side of face COPD exacerbation Essential hypertension Upper respiratory tract infection Surgical History Surgical History History of appendectomy Age 10 Family History Family History Father Family history of cardiovascular disease Family history of chronic obstructive pulmonary disease Family history of tuberculosis Family history of coronary artery disease Mother Family history of cardiovascular disease, Onset Age: 97 Grandparent Family history of kidney disease Other Asthma Family history of hearing loss Family history of lung disease Social History Social History Smoking status: Never smoker Second hand tobacco smoke exposure: No Alcohol intake: never Substance use: never Substance use type: does not use Lack of Transportation: No Lack of Food: Never True Current Housing: I Have Housing Concerned About Future Housing: No Difficulty Paying Gas/Electric Bills: No Difficulty Paying for Meds: No Currently Unemployed: No Education: High School Diploma/GED Difficulty w/ Childcare or Family Care: No Living arrangements: with family Gender identity (if verbalized by the patient): Female Spiritual care concerns: No Exam Narrative: GENERAL: Well-appearing, well-nourished, and in no acute distress. HEAD: Normocephalic, atraumatic. HEART: Regular rate and rhythm. No murmur heard. Normal peripheral pulses. EXTREMITIES: Normal range of motion. No edema. Mild tenderness over left greater trochanter. SKIN: Warm, dry, no rash. NEURO: Alert and oriented x1. PSYCH: Normal mood and affect. Course Course Emergency Course: Patient may have bursitis greater trochanter and she will be prescribed b.i.d. naproxen and conservative management has been recommended to family. Recommend follow-up with PCP or ortho should pain continue. Tylenol for breakthrough pain during the day. Vital Signs Vital signs: Vital Signs Temperature 97.9 F 01/03/25 09:51 Pulse Rate 67 01/03/25 09:51 Respiratory Rate 16 01/03/25 09:51 Blood Pressure 145/58 H 01/03/25 09:51 Oxygen Delivery Room Air 01/03/25 09:51 Temperature 97.9 F 01/03/25 09:51 Pulse Rate 67 01/03/25 09:51 Respiratory Rate 16 01/03/25 09:51 Blood Pressure 145/58 H 01/03/25 09:51 Oxygen Delivery Room Air 01/03/25 09:51 MDM - Extremity Injury (Lower) Imaging Data Radiologist's impression: ITS Impressions Hip X-Ray 01/03/25 11:55 IMPRESSION: 1. 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 2. Mild left hip osteoarthritis. Discharge Plan Discharge Clinical Impression: Left hip pain Patient Disposition: Home, Self-Care Condition: Stable Instructions: Hip Bursitis (ED) Additional Instructions: Take naproxen for pain twice a day. If you develop upset stomach or dark stools discontinue the medication. Take Tylenol for breakthrough pain. Follow-up with your PCP or orthopedic surgeon for further evaluation. Patient Language: Hungarian Prescriptions: New naproxen 250 mg tablet 250 mg PO BID Qty: 14 0RF No Action calcium carbonate-vitamin D3 500 mg-10 mcg (400 unit) tablet 1 tablet PO BID 90 Days Qty: 180 3RF triamcinolone acetonide 0.5 % cream 1 applic topical TID Qty: 30 0RF Eliquis 2.5 mg tablet 2.5 mg PO BID azelastine 205.5 mcg (0.15 %) spray,non-aerosol 2 spray intranasal BID Qty: 30 5RF Rx Instructions: administer into each nostril mirtazapine 15 mg tablet 15 mg PO QHS Qty: 30 3RF ipratropium bromide 21 mcg (0.03 %) spray,non-aerosol 2 spray intranasal TID PRN (Reason: runny nose) Qty: 30 0RF Rx Instructions: administer into each nostril Zyrtec 10 mg capsule 10 mg PO DAILY PRN (Reason: allergy symptoms) Qty: 10 0RF ketorolac 0.5 % drops 1 drp RIGHT EYE TID Qty: 5 0RF pantoprazole 40 mg tablet,delayed release (DR/EC) 40 mg PO BID Qty: 60 0RF quetiapine 50 mg tablet 50 mg PO QHS Qty: 30 5RF gabapentin 100 mg capsule 100 mg PO BID Qty: 180 1RF Follow-up/Referrals: Elias Irizarry MD [Primary Care Provider] - 1 Week
--- OUTSIDE RECORDS SUMMARY | 2025-01-03 12:41 | XMS_ITS | Continuity of Care Document ---
Author Organization [facility] Address [address] [place] [address] [place] [address] Phone Care Team Providers Care Records Officer Name Role Phone Mahad Art Unavailable Unavailable [...] Diagnoses Date Provider Providers Copied on Encounter [facility], [address] [place] [address] [address], [place], [place], [id number], [place] tel:[phone] SEC [facility] No Information 0 Kaelyn Tobin. [address] [place], [address], [place]. tel:[phone] Referring Provider: Mahad Madrigal, [address] [place], [address]. tel:[phone] [facility], [address] [place] [address] [address], [place], [place], [id number], [place] tel:[phone] [facility] [place] No Information 0 Kaelyn Tobin. [address] [place], [place], [facility], . tel:[phone] [facility], [address] [place] [address] [address], [place], [place], [id number], tel:[phone] [facility] No Information May-2 4-201 0 Kaelyn Tobin. [address] [place] [address], [facility], [place]. tel:[phone] Referring Provider: Mahad Madrigal, [address] [place], [place], [facility]. tel:[phone] Office/outpat ient Visit, [facility], [address] [place] [address] [address], [place], [place], [id number], tel:[phone] [facility] No Information May-0 5-201 0 Krishnasamy Anibal. [address], [facility], [place]. tel:[phone] [facility], [address] [place] [address] [address], [place], [place], [id number], tel:[phone] [facility] No Information Dec-2 3-200 9 Krishnasamy Anibal. 24[address] [facility] [address], [place], [facility], [place]. tel:[phone] Office/outpat ient Visit, [facility], [address] [place] [address] [address], [place], [place], [id number], tel:[phone] SEC [facility] No Information Nov-0 5-200 8 Krishnasamy Anibal. 2421 [facility] [address], [place], [facility], [place]. tel:[phone] Family History Family Member Type Diagnosis Age At Onset No Information Payers Payer name Insurance type Covered republican ID Authordona tinikki(s) [place] MB [id number] Social History Type Description Quantity Date Captured [...]
--- OUTSIDE RECORDS SUMMARY | 2025-01-03 12:41 | XMS_ITS | Clinical Summary ---
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 Discharge pending insurance authorization 01/29 Patient is medically stable for discharge, SW/CM updated. Discharge pending insurance authorization 02/04 Patient is medically stable for discharge, SW/CM updated. 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 ENGINEERING TEACHER re-eval tomorrow 01/23 passed MBS, full thin [...] (last 01/12 in AM) 01/14 Call [address] Ammonium Nitrate Crystallizer Dr Haynes for on going need and [...] stopped secondary to recent and frequent falls [id number] [place], [place] - [address] [place] [address] RD AT [facility] & [facility] 159 P: [phone] Immunizations Immunization Administration Dates Next Due Influenza, [...] drink = 0.6 oz pur e alcohol) [facility] Utilities Answer Date Recorded In the past 12 months has e electric, gas, oil, or water [employer] threatened to shut off services in your [...] answer 01/19/2024 How often do you attend [facility] or moravian services? Patient unable to answer 01/19/2024 Do you belong to any clubs o r organizations such as jainism groups, unions, fraternal or athletic groups, or [...] and heating? Patient unable to answer 01/19/2024 [facility] - Occupational Stress Questionnaire [...] place to sleep or slept in a longterm (including now)? Patient unable to answer 01/19/2024 Personal Safety Answer Date Recorded Have you ever been in or are you currently in a harmful physical or emotional relationship or is someone making you feel afraid or unsafe? 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 Gender Identity Not on file Sexual Orientation [...] 02/05/2025 02/06/2024 Medical Devices Implanted Type Area Tanbark Laborer Device Identifier Shelf Expiration Date Model / Serial / Lot [employer] Simplex P Radiopaque Full Dose Cement Bone Sterile 6191-1-010 - [id number] Implanted:Qty: 1 on 01/14/2024 by Randall Thomas MD at [facility] Left: Hip [employer] [id number] 02/26/2026 6191-1-010 / / [id number] O[employer] Simplex P Radiopaque Full Dose Cement Bone Sterile 6191-1-010 - [id number] Implanted:Qty: 1 on 01/14/2024 by Randall Thomas MD at [facility] Left: Hip [employer] [id number] 02/26/2026 6191-1-010 / / [id number] Andrea & Nephew/Rich[employer]/Or tho Prep-Im Plug [place] Sponge Suction Hip Kit Thr Latex Free [id number] - [id number] Implanted:Qty: 1 on 01/14/2024 by Randall Thomas MD at [facility] Left: Hip Andrea [employer] Nephew/[employer]/O rtho 09/04/2033 [id number] / / [id number] Depuy Orthopaedics Inc Cementralizer 9.25mm Cemented Hip Femur Centralizer Stem Pmma Latex Free [id number] - [id number] Implanted:Qty: 1 on 01/14/2024 by Randall Thomas MD at [facility] Left: Hip [employer]ed[employer] Inc 05/29/2028 [id number] / / [id number] [employer]uy Orth[employer]ed[employer] Inc Self-Centering 45mm 28mm Hip Femur Head Bipolar Sterile Mckinley [id number] - [id number] Implanted:Qty: 1 on 01/14/2024 by Randall Thomas MD at [facility] Left: Hip [employer] Inc 04/28/2028 [id number] / / [id number] Depuy Orth[employer]ed[employer] Inc [place] 114mm Cemented Hip 4 12/14 Standard Offset Taper Stem [id number] - [id number] Implanted:Qty: 1 on 01/14/2024 by Randall Thomas MD at [facility] Left: Hip [employer] Inc 11/29/2028 [id number] / / [id number] Dep[employer] Inc Articul/John [place] 28mm Hip +5mm 12/14 Taper Head Femoral Cocr Sterile Latex Free [id number] - [id number] Implanted:Qty: 1 on 01/14/2024 by Randall Thomas MD at [facility] Left: Hip [employer] Inc 08/29/2028 [id number] / / [id number] [place] [address] MEDICARE SOLUTIONS T MEDICARE T MEDICARE Advance Directives For more information, please contact: [phone] Documents on File Type Date Recorded Patient Operations Clerk Expl anation Power of Cordwood Cutter 02/03/2022 10:32 AM * Full Code (Latest Code Status on File) Date Activated Date Inactivated Comments 01/13/2024 7:18 PM 02/06/2024 7:56 PM Care Teams Residency Coordinator Relationship Specialty Start Date End Date Elias Irizarry MD [address] [place] [address] PCP - General Family Medicine 01/15/24 Miscellaneous, Not In File 02/06/24
--- OUTSIDE RECORDS SUMMARY | 2025-01-03 12:41 | XMS_ITS | Referral Summary ---
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 Discharge pending insurance authorization 01/29 Patient is medically stable for discharge, SW/CM updated. Discharge pending insurance authorization 02/04 Patient is medically stable for discharge, SW/CM updated. Discharge pending facility acceptance NO xarelto on discharge Suzie Mary (Daughter) [phone] Delirium 01/16/2024 Assessment & Plan (01/30/2024 1:34 [...] and meds administration 01/20 tolerated TFs, pending ENERGY AUDIT ADVISOR re-eval tomorrow 01/23 passed MBS, full thin [...] (last 01/12 in AM) 01/[address] Machine Feeder [address] Haynes for on going need and [...] stopped secondary to recent and frequent falls [id number] [place], [place] - [address] [place] [address] RD AT [facility] & [facility] 159 P: [phone] Immunizations Immunization Administration Dates Next Due Influenza, [...] drink = 0.6 oz pur e alcohol) [facility] Utilities Answer Date Recorded In the past 12 months has [employer] gas, oil, or water [employer] threatened to shut off services in your [...] often do you attend chur ch or catholic services? Patient unable to answer 01/19/2024 Do you belong to any clubs o r organizations such as congregational groups, unions, fraternal or athletic groups, or [...] and heating? Patient unable to answer 01/19/2024 [facility] - Occupational Stress Questionnaire Answer Date Recorded [...] place to sleep or slept in a long-term (including now)? Patient unable to answer 01/19/2024 Personal Safety Answer Date Recorded Have you ever been in or are you currently in a harmful physical or emotional relationship or is someone making you feel afraid or unsafe? 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 Gender Identity Not on file Sexual Orientation [...] on file Medical Devices Implanted Type Area Bead Inspector Device Identifier Shelf Expiration Date Model / Serial / Lot [employer] Simplex P Radiopaque Full Dose Cement Bone Sterile 6191-1-010 - [id number] Implanted:Qty: 1 on 01/14/2024 by Randall Thomas MD at [facility] Left: Hip [employer] [id number] 02/26/2026 6191-1-010 / / [id number] Kim [employer] Simplex P Radiopaque Full Dose Cement Bone Sterile 6191-1-010 - [id number] Implanted:Qty: 1 on 01/14/2024 by Randall Thomas MD at [facility] Left: Hip [employer] [id number] 02/26/2026 6191-1-010 / / [id number] Andrea & Nephew/[employer]/Or tho Prep-Im Plug [place] Sponge Suction Hip Kit Thr Latex Free 204190 - [id number] Implanted:Qty: 1 on 01/14/2024 by Randall Thomas MD at [facility] Left: Hip Andrea [employer] Nephew/Richco/O rtho 09/04/2033 [id number] / / [id number] Depuy Orthopaedics Inc Cementralizer 9.25mm Cemented Hip Femur Centralizer Stem Pmma Latex Free [id number] - [id number] Implanted:Qty: 1 on 01/14/2024 by Randall Thomas MD at [facility] Left: Hip [employer]ed[employer] Inc 05/29/2028 [id number] / / [id number] Depuy Orthopaed[employer] Inc Self-Centering 45mm 28mm Hip Femur Head Bipolar Sterile Mckinley [id number] - [id number] Implanted:Qty: 1 on 01/14/2024 by Randall Thomas MD at [facility] Left: Hip [employer] Orthopaed[employer] Inc 04/28/2028 [id number] / / [id number] Depuy Orthopaed[employer] Inc [place] 114mm Cemented Hip 4 10/12 Standard Offset Taper Stem [id number] - [id number] Implanted:Qty: 1 on 01/14/2024 by Randall Thomas MD at [facility] Left: Hip [employer]ed[employer] Inc 11/29/2028 [id number] / / [id number] Depuy Orthopaed[employer] Inc Articul/John Paul 28mm Hip +5mm 12/14 Taper Head Femoral Cocr Sterile Latex Free [id number] - [id number] Implanted:Qty: 1 on 01/14/2024 by Randall Thomas MD at [facility] Left: Hip [employer] Inc 08/29/2028 [id number] / / [id number] Insurance MEDICARE SOLUTIONS [facility] MEDICARE Address: [address] [address] [place] [address] [facility] MEDICARE [facility] Address: [address] [place] [address] [facility] MEDICARE [facility] Address: [facility] [id number] [place] [phone] Advance Directives For more information, please contact: [phone] Documents on File Type Date Recorded 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
--- OUTSIDE RECORDS SUMMARY | 2025-01-03 12:41 | XMS_ITS ---
Author Organization [facility] Care Team Providers Care Case Monitor Name Role Phone Vernon Mora Unavailable Unavailable Allergies and adverse reactions Code CodeSystem Substance Reaction Severity StartDate Concern Status 412713215 SNOMED CT Sulfa Antibiotics Moderate active 2001 RXNORM carBAMazepine Moderate 02/07/2024 active Care Team Name Role Address Phone Organization Dates Vernon [place] [address] [place], [address], [place] (Office): : [facility] 02/06/2024 - 02/17/2024 Immunizations Immunization Status Vaccine Details Vaccine Code CodeSystem Date Notes Prevnar 13 completed pneumococcal conjugate vaccine, 13 valent 133 CVX created date: 02/07/2024 administer ed date: 08/15/2018 Measles/Mumps/Ru varun (MMR) normal measles, mumps and rubella virus vaccine 03 CVX created date: 02/13/2024 consent date: 02/13/2024 before 1956 Prevnar 20 completed Pneumococcal conjugate vaccine 20-valent (PCV20), polysaccharide [id number] conjugate, adjuvant, preservative free Given 0.5 ml [...] 1 CHRONIC DIASTOLIC (CONGESTIVE) HEART FAILURE 02/06/[address] active 2 CHRONIC OBSTRUCTIVE PULMONARY DISEASE, UNSPECIFIED 02/06/[address] active 3 DEMENTIA IN OTHER DISEASES CLASSIFIED ELSEWHERE, UNSPECIFIED SEVERITY, WITH AGITATION 02/06/[address] active 4 DISORIENTATION, UNSPECIFIED 02/06/[address] active 5 DYSPHAGIA, UNSPECIFIED 02/06/[address] active 6 ENCOUNTER FOR OTHER ORTHOPEDIC AFTERCARE 02/06/[address] active 7 FRACTURE OF UNSPECIFIED PART OF NECK OF LEFT FEMUR, SUBSEQUENT ENCOUNTER FOR CLOSED FRACTURE WITH ROUTINE HEALING 02/06/[address] active 8 NONTOXIC SINGLE THYROID NODULE 02/06/[address] active 9 OBSTRUCTIVE SLEEP APNEA (ADULT) (PEDIATRIC) 02/06/[address] active 10 PERSONAL HISTORY OF OTHER VENOUS THROMBOSIS AND EMBOLISM 02/06/[address] active 11 PULMONARY HYPERTENSION, UNSPECIFIED 02/06/[address] active 12 THYROTOXICOSIS, 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 THYROTOXIC CRISIS OR STORM 02/06/[address] active 13 TRIGEMINAL NEURALGIA 02/06/[address] active 14 UNSPECIFIED PROTEIN-CALORIE MALNUTRITION 02/06/[address] active Reason for Referral No Reasons for Referral Entered Social History Social History Observation Description Start Date End Date Code Code System Current Smoking Status Tobacco smoking consumption unknown 348024433 SNOMED CT Sex Assigned At Female 1935 94493-5 [facility] Vital Signs Code Code System Vitals Name Values and Units Timing Information 8462-4 [facility] Blood Pressure-Diastolic Value=77 Un its=mmHg 02/16/2024 8480-6 [facility] Blood Pressure-Systolic Qwjuf=731 Un its=mmHg 02/16/2024 9279-1 [facility] Respiratory Rate Value=20.0 Units=/m in 02/16/2024 8310-5 [facility] Body Temperature Value=97.4 Units= F 02/16/2024 8867-4 [facility] Heart rate Value=80.0 Units=/min 10075-4 [facility] O2 % BldC Oximetry Value=98.0 Units= % 02/16/2024 64880-2 [facility] Weight Value=97.9 Units=Lbs 01/28 79364-1 [facility] Pain Level Value=0.0 02/07/2024 8302-2 [facility] Height Value=63.0 Units=Inches 02/07/2024
== END 2025-01-03 12:47 | disposition home or self-care (01) ==
PROVIDERS: Emergency Provider Emergency Medicine; PCP Family Medicine Adolescent Medicine
DX: M25.552 Pain in left hip (principal); J44.9 Chronic obstructive pulmonary disease, unspecified; I10 Essential (primary) hypertension; E05.20 Thyrotoxicosis with toxic multinodular goiter without thyrotoxic crisis or storm; Z96.642 Presence of left artificial hip joint; Z86.718 Personal history of other venous thrombosis and embolism; M16.12 Unilateral primary osteoarthritis, left hip
CPT/HCPCS: 73502; 99283